=== PATIENT | female | born 1955 | race Two or more races ===

== ENCOUNTER 2021-06-06 20:49 | Inpatient (IN) | payer OTHER ==
[~2021-06-06] VITALS: Ht 165.1 cm; Wt 99.8 kg
[~2021-06-06 20:49] MED LIST: ETOMIDATE 2MG/ML 10ML VIAL IV ONE; SODIUM CHLORIDE 0.9% 10ML VIAL ONE; VECURONIUM BROMIDE 10 MG/VIAL IV ONE
[2021-06-06] MEDS ORDERED: PROPOFOL 10MG/ML 100ML 100 ML IV STA (20:57)
[2021-06-06] MEDS ORDERED: DEXAMETHASONE 10 MG/ML VIAL IV ONE (21:00)
[2021-06-06] MEDS ORDERED: AZITHROMYCIN 500 MG in DEXT 5% WATER 250 ML IV ONE (21:00)
[2021-06-06] MEDS ORDERED: CEFTRIAXONE 1 G PREMIX 50 ML IV ONE (21:00)
[2021-06-06] MEDS ORDERED: DILTIAZEM HCL 5MG/ML 5ML VIAL IV ONE (21:30)
[2021-06-06 21:52] LABS: BG BASE EXCESS -4.7 mmol/L (-2.0-2.0); BG DEOXYHEMOGLOBIN 21.6 % (0.0-5.0); BG FRACTION INSPIRED OXYGEN 100; BG HCO3 ACT 21.3 mmol/L (22.0-26.0); BG METHEMOGLOBIN 0.4 % (0.0-1.5); BG OXYGEN SATURATION 78.1 % (92.0-98.5); BG PCO2 42.7 mmHg (35.0-45.0); BG PH 7.316 (7.350-7.450); BG PO2 48.2 mmHg (75.0-100.0); BG SAMPLE SITE RIGHT RADIAL; BG VENT MODE VENT - AC
[2021-06-06 22:09] LABS: BASOPHILS % 0.3 % (0.0-2.0); EOSINOPHILS % 0.1 % (0.0-5.0); HEMATOCRIT. 43.2 % (36.0-48.0); HEMOGLOBIN. 14.1 g/dL (12.0-16.0); LYMPHOCYTES % 12.5 % (20.0-50.0); MEAN CORPUSCULAR HEMOGLOBIN 29.8 pg (28.0-32.0); MEAN CORPUSCULAR VOLUME 91.4 fL (81.0-99.0); MONOCYTES % 12.6 % (2.0-8.0); NEUTROPHILS % 74.5 % (40.0-76.0); RED BLOOD CELL COUNT 4.72 mill/uL (4.2-5.4); RED CELL DISTRIBUTION WIDTH 14.6 % (11.6-14.6)
[2021-06-06 22:11] LABS: CHLORIDE 96 mEq/L (98-107)
[2021-06-06 22:13] LABS: INR 1.1; PROTHROMBIN TIME 11.9 sec (9.6-11.0)
[2021-06-06] MEDS ORDERED: MIDAZOLAM HCL 100 MG in DEXT 5% WATER 80 ML IV ONE (22:45)
[2021-06-06] MEDS ORDERED: PIPERACILLIN/TAZ 3.375G PREMIX 50 ML IV ONE (23:00)
[2021-06-06] MEDS ORDERED: PHENYLEPHRINE 50 MG in DEXT 5% WATER 245 ML IV STA (23:03)
[2021-06-06] MEDS ORDERED: PHENYLEPHRINE 50 MG in DEXT 5% WATER 245 ML IV PRN (23:15)
[2021-06-06] MEDS ORDERED: MIDAZOLAM HCL 100 MG in DEXT 5% WATER 80 ML IV PRN (23:15)
[2021-06-07] VITALS (89 sets, daily range): BP systolic 59–161; BP diastolic 45–108
[2021-06-07] MEDS: DEXT 5%/0.45% NACL 1000ML 1,000 ML IV SCH ×2 (02:30→18:56)
[2021-06-07 03:31] LABS: BASOPHILS % 0.7 % (0.0-2.0); EOSINOPHILS % 0.1 % (0.0-5.0); HEMATOCRIT. 42.2 % (36.0-48.0); LYMPHOCYTES % 16.4 % (20.0-50.0); MEAN CORPUSCULAR HEMOGLOBIN 30.5 pg (28.0-32.0); MEAN CORPUSCULAR VOLUME 92.1 fL (81.0-99.0); NEUTROPHILS % 76.8 % (40.0-76.0); RED BLOOD CELL COUNT 4.58 mill/uL (4.2-5.4); RED CELL DISTRIBUTION WIDTH 14.5 % (11.6-14.6)
[2021-06-07 03:41] LABS: CHLORIDE 95 mEq/L (98-107)
[2021-06-07] MEDS: PHENYLEPHRINE 100 MG in DEXT 5% WATER 240 ML IV PRN ×4 (03:42→19:42)
[2021-06-07] MEDS ORDERED: CEFTRIAXONE 1 G PREMIX 50 ML IV SCH (04:15)
[2021-06-07] MEDS ORDERED: ACETAMINOPHEN 650MG SUPP PR PRN (04:15)
[2021-06-07] MEDS ORDERED: ONDANSETRON HCL 4MG/2ML INJ IV PRN (04:15)
[2021-06-07] MEDS ORDERED: DEXT 5%/0.45% NACL 1000ML 1,000 ML IV SCH (04:15)
[2021-06-07] MEDS ORDERED: DEXAMETHASONE 10 MG/ML VIAL IV SCH (09:00)
[2021-06-07 09:48] LABS: BG BASE EXCESS -7.8 mmol/L (-2.0-2.0); BG CARBOXYHEMOGLOBIN 0.5 % (0.5-1.5); BG DEOXYHEMOGLOBIN 5.7 % (0.0-5.0); BG FRACTION INSPIRED OXYGEN 100; BG HCO3 ACT 17.6 mmol/L (22.0-26.0); BG METHEMOGLOBIN 0.3 % (0.0-1.5); BG OXYGEN SATURATION 94.3 % (92.0-98.5); BG OXYHEMOGLOBIN 93.5 % (94.0-97.0); BG PCO2 35.9 mmHg (35.0-45.0); BG PH 7.308 (7.350-7.450); BG SAMPLE SITE RIGHT RADIAL; BG TOTAL HEMOGLOBIN 14.3 g/dL (12.0-18.0); BG VENT MODE VENT - AC
[2021-06-07] MEDS: PANTOPRAZOLE SODIUM 40 MG/VIAL IV SCH (10:15)
[2021-06-07] MEDS: FENTANYL CITRATE/PF 2,500 MCG in SODIUM CHLORIDE 0.9% 200 ML IV PRN (10:49)
[2021-06-07] MEDS ORDERED: DILTIAZEM HCL 5MG/ML 5ML VIAL IV PRN (11:00)
[2021-06-07] MEDS ORDERED: IPRATROPIUM/ALBUTEROL 0.5-3(2.5)MG/3ML NEB HHN PRN (11:45)
[2021-06-07] MEDS: ENOXAPARIN 100MG/ML SYR SUBCUT SCH (12:55)
[2021-06-07] MEDS: ZINC SULFATE 220 MG ( 50 ) CAPSULE PO SCH (12:55)
[2021-06-07] MEDS: IPRATROPIUM/ALBUTEROL 0.5-3(2.5)MG/3ML NEB HHN SCH ×2 (15:00→21:18)
[2021-06-07 16:18] LABS: BG BASE EXCESS -7.3 mmol/L (-2.0-2.0); BG CARBOXYHEMOGLOBIN 0.3 % (0.5-1.5); BG DEOXYHEMOGLOBIN 1.2 % (0.0-5.0); BG FRACTION INSPIRED OXYGEN 100; BG HCO3 ACT 17.4 mmol/L (22.0-26.0); BG METHEMOGLOBIN 0.3 % (0.0-1.5); BG OXYGEN SATURATION 98.8 % (92.0-98.5); BG OXYHEMOGLOBIN 98.2 % (94.0-97.0); BG PCO2 33.2 mmHg (35.0-45.0); BG PH 7.337 (7.350-7.450); BG SAMPLE SITE LEFT BRACHIAL; BG TOTAL HEMOGLOBIN 15.3 g/dL (12.0-18.0); BG VENT MODE PRVC
[2021-06-07] MEDS: ERGOCALCIFEROL 50000UNITS CAPSULE PO SCH (17:46)
[2021-06-07] MEDS: MIDAZOLAM HCL 100 MG in SODIUM CHLORIDE 0.9% 80 ML IV PRN ×2 (19:37→19:43)
[2021-06-07] MEDS: CEFTRIAXONE 1,000 MG in DEXTROSE 5% WATER 50 ML IV SCH ×2 (19:39→19:42)
[2021-06-07] MEDS: AZITHROMYCIN 500 MG in DEXT 5% WATER 250 ML IV SCH (20:10)
[2021-06-08] VITALS (93 sets, daily range): BP systolic 90–136; BP diastolic 56–93
[2021-06-08] MEDS: IPRATROPIUM/ALBUTEROL 0.5-3(2.5)MG/3ML NEB HHN SCH ×4 (00:26→21:15)
[2021-06-08] MEDS: DEXT 5%/0.45% NACL 1000ML 1,000 ML IV SCH (05:40)
[2021-06-08 06:14] LABS: CHLORIDE 95 mEq/L (98-107)
[2021-06-08 06:16] LABS: BASOPHILS % 0.3 % (0.0-2.0); EOSINOPHILS % 0.1 % (0.0-5.0); HEMATOCRIT. 42.3 % (36.0-48.0); HEMOGLOBIN. 14.2 g/dL (12.0-16.0); LYMPHOCYTES % 9.7 % (20.0-50.0); MEAN CORPUSCULAR HEMOGLOBIN 30.3 pg (28.0-32.0); MEAN CORPUSCULAR VOLUME 90.2 fL (81.0-99.0); MONOCYTES % 7.2 % (2.0-8.0); NEUTROPHILS % 82.7 % (40.0-76.0); RED BLOOD CELL COUNT 4.69 mill/uL (4.2-5.4); RED CELL DISTRIBUTION WIDTH 14.5 % (11.6-14.6)
[2021-06-08 06:53] LABS: HEPATITIS B SURFACE ANTIGEN NEGATIVE
[2021-06-08 07:48] LABS: BG BASE EXCESS -4.3 mmol/L (-2.0-2.0); BG CARBOXYHEMOGLOBIN 0.3 % (0.5-1.5); BG DEOXYHEMOGLOBIN 1.2 % (0.0-5.0); BG HCO3 ACT 20.3 mmol/L (22.0-26.0); BG METHEMOGLOBIN 0.1 % (0.0-1.5); BG OXYGEN SATURATION 98.8 % (92.0-98.5); BG OXYHEMOGLOBIN 98.4 % (94.0-97.0); BG PCO2 36.4 mmHg (35.0-45.0); BG PH 7.365 (7.350-7.450); BG PO2 148.6 mmHg (75.0-100.0); BG SAMPLE SITE RIGHT RADIAL; BG TOTAL HEMOGLOBIN 14.8 g/dL (12.0-18.0); BG VENT MODE VENT- PRVC
[2021-06-08] MEDS: DEXAMETHASONE 10 MG/ML VIAL IV SCH (10:31)
[2021-06-08] MEDS: ZINC SULFATE 220 MG ( 50 ) CAPSULE PO SCH (10:31)
[2021-06-08] MEDS: PANTOPRAZOLE SODIUM 40 MG/VIAL IV SCH (10:31)
[2021-06-08] MEDS: ENOXAPARIN 100MG/ML SYR SUBCUT SCH (12:00)
[2021-06-08] MEDS: MIDAZOLAM HCL 100 MG in SODIUM CHLORIDE 0.9% 80 ML IV PRN (14:07)
[2021-06-08] MEDS: DEXT 5%/0.9% NACL 1,000 ML IV SCH (16:56)
[2021-06-08] MEDS ORDERED: METOCLOPRAMIDE HCL 10MG/2ML VIAL IV SCH (18:00)
[2021-06-08] MEDS: CEFTRIAXONE 1,000 MG in DEXTROSE 5% WATER 50 ML IV SCH (19:29)
[2021-06-08] MEDS: AZITHROMYCIN 500 MG in DEXT 5% WATER 250 ML IV SCH (20:16)
[2021-06-08] MEDS: METOCLOPRAMIDE HCL 10MG/2ML VIAL IV SCH (23:03)
[2021-06-09] VITALS (95 sets, daily range): BP systolic 81–134; BP diastolic 50–79
[2021-06-09] MEDS: IPRATROPIUM/ALBUTEROL 0.5-3(2.5)MG/3ML NEB HHN SCH ×4 (01:10→20:59)
[2021-06-09] MEDS: DEXT 5%/0.9% NACL 1,000 ML IV SCH (02:33)
[2021-06-09] MEDS: PHENYLEPHRINE 100 MG in DEXT 5% WATER 240 ML IV PRN (02:33)
[2021-06-09] MEDS: METOCLOPRAMIDE HCL 10MG/2ML VIAL IV SCH ×4 (04:58→23:34)
[2021-06-09] MEDS: FENTANYL CITRATE/PF 2,500 MCG in SODIUM CHLORIDE 0.9% 200 ML IV PRN (06:53)
[2021-06-09] MEDS: DEXAMETHASONE 10 MG/ML VIAL IV SCH (08:26)
[2021-06-09] MEDS: PANTOPRAZOLE SODIUM 40 MG/VIAL IV SCH (08:26)
[2021-06-09] MEDS: ZINC SULFATE 220 MG ( 50 ) CAPSULE PO SCH (08:26)
[2021-06-09] MEDS: MIDAZOLAM HCL 100 MG in SODIUM CHLORIDE 0.9% 80 ML IV PRN (08:39)
[2021-06-09 08:55] LABS: BASOPHILS % 0.3 % (0.0-2.0); HEMATOCRIT. 39.2 % (36.0-48.0); HEMOGLOBIN. 12.7 g/dL (12.0-16.0); LYMPHOCYTES % 10.3 % (20.0-50.0); MEAN CORPUSCULAR VOLUME 92.3 fL (81.0-99.0); MONOCYTES % 8.6 % (2.0-8.0); NEUTROPHILS % 80.8 % (40.0-76.0); RED BLOOD CELL COUNT 4.25 mill/uL (4.2-5.4); RED CELL DISTRIBUTION WIDTH 14.5 % (11.6-14.6)
[2021-06-09] MEDS ORDERED: INSULIN REGULAR (HUMULIN R) 300UNITS/3ML VIAL IV NR (11:00)
[2021-06-09] MEDS: ENOXAPARIN 100MG/ML SYR SUBCUT SCH (12:00)
[2021-06-09] MEDS: INSULIN LISPRO 100 UNITS/ML SUBCUT SCH ×4 (12:00→23:35)
[2021-06-09] MEDS: BLOOD SUGAR DIAGNOSTIC STRIP TEST SCH ×4 (12:01→23:35)
[2021-06-09] MEDS: SODIUM CHLORIDE 0.9% 1,000 ML IV SCH ×2 (12:34→23:34)
[2021-06-09] MEDS: INSULIN GLARGINE UD 100 UNITS/ML SYR SUBCUT SCH (14:12)
[2021-06-09] MEDS ORDERED: OMEP20TA2 MT (16:59)
[2021-06-09] MEDS ORDERED: AMLO5TAB88 MT (16:59)
[2021-06-09] MEDS: CEFTRIAXONE 1,000 MG in DEXTROSE 5% WATER 50 ML IV SCH (19:59)
[2021-06-09] MEDS: AZITHROMYCIN 500 MG in DEXT 5% WATER 250 ML IV SCH (20:44)
[2021-06-10] VITALS (94 sets, daily range): BP systolic 102–145; BP diastolic 57–85
[2021-06-10] MEDS: MIDAZOLAM HCL 100 MG in SODIUM CHLORIDE 0.9% 80 ML IV PRN (01:48)
[2021-06-10] MEDS: IPRATROPIUM/ALBUTEROL 0.5-3(2.5)MG/3ML NEB HHN SCH ×4 (02:18→20:58)
[2021-06-10] MEDS: BLOOD SUGAR DIAGNOSTIC STRIP TEST SCH ×5 (04:18→20:02)
[2021-06-10] MEDS: METOCLOPRAMIDE HCL 10MG/2ML VIAL IV SCH ×3 (05:06→17:51)
[2021-06-10] MEDS: INSULIN LISPRO 100 UNITS/ML SUBCUT SCH ×5 (05:07→20:09)
[2021-06-10] MEDS: SODIUM CHLORIDE 0.9% 1,000 ML IV SCH ×2 (07:48→17:51)
[2021-06-10] MEDS: DEXAMETHASONE 10 MG/ML VIAL IV SCH (08:01)
[2021-06-10] MEDS: ZINC SULFATE 220 MG ( 50 ) CAPSULE PO SCH (08:01)
[2021-06-10] MEDS: PANTOPRAZOLE SODIUM 40 MG/VIAL IV SCH (08:01)
[2021-06-10 09:38] LABS: BG BASE EXCESS -4.2 mmol/L (-2.0-2.0); BG CARBOXYHEMOGLOBIN 0.1 % (0.5-1.5); BG DEOXYHEMOGLOBIN 3.6 % (0.0-5.0); BG FRACTION INSPIRED OXYGEN 85; BG HCO3 ACT 21.3 mmol/L (22.0-26.0); BG METHEMOGLOBIN 0.3 % (0.0-1.5); BG OXYGEN SATURATION 96.4 % (92.0-98.5); BG PCO2 40.5 mmHg (35.0-45.0); BG PH 7.338 (7.350-7.450); BG PO2 89.5 mmHg (75.0-100.0); BG SAMPLE SITE RIGHT RADIAL; BG TOTAL HEMOGLOBIN 12.7 g/dL (12.0-18.0); BG VENT MODE VENT - PRVC
[2021-06-10] MEDS: INSULIN GLARGINE UD 100 UNITS/ML SYR SUBCUT SCH (10:20)
[2021-06-10] MEDS: ENOXAPARIN 100MG/ML SYR SUBCUT SCH (11:41)
[2021-06-10 12:41] LABS: HEMATOCRIT. 34.8 % (36.0-48.0); HEMOGLOBIN. 11.3 g/dL (12.0-16.0); MEAN CORPUSCULAR HEMOGLOBIN 30.3 pg (28.0-32.0); MEAN CORPUSCULAR VOLUME 92.7 fL (81.0-99.0); RED BLOOD CELL COUNT 3.75 mill/uL (4.2-5.4); RED CELL DISTRIBUTION WIDTH 14.8 % (11.6-14.6)
[2021-06-10 12:56] LABS: BG BASE EXCESS -3.2 mmol/L (-2.0-2.0); BG CARBOXYHEMOGLOBIN 0.1 % (0.5-1.5); BG DEOXYHEMOGLOBIN 3.3 % (0.0-5.0); BG FRACTION INSPIRED OXYGEN 75; BG HCO3 ACT 22.7 mmol/L (22.0-26.0); BG METHEMOGLOBIN 0.3 % (0.0-1.5); BG OXYGEN SATURATION 96.7 % (92.0-98.5); BG OXYHEMOGLOBIN 96.3 % (94.0-97.0); BG PH 7.331 (7.350-7.450); BG PO2 94.1 mmHg (75.0-100.0); BG SAMPLE SITE RIGHT RADIAL; BG TOTAL HEMOGLOBIN 15.1 g/dL (12.0-18.0); BG VENT MODE PRVC
[2021-06-10 14:00] LABS: NUCLEATED RED BLOOD CELLS 1 /100 WBC
[2021-06-10] MEDS: CEFTRIAXONE 1,000 MG in DEXTROSE 5% WATER 50 ML IV SCH (19:55)
[2021-06-10] MEDS: AZITHROMYCIN 500 MG in DEXT 5% WATER 250 ML IV SCH (21:40)
[2021-06-11] VITALS (88 sets, daily range): BP systolic 119–166; BP diastolic 48–93
[2021-06-11] MEDS: BLOOD SUGAR DIAGNOSTIC STRIP TEST SCH ×6 (00:11→20:50)
[2021-06-11] MEDS: INSULIN LISPRO 100 UNITS/ML SUBCUT SCH ×6 (00:15→20:55)
[2021-06-11] MEDS: METOCLOPRAMIDE HCL 10MG/2ML VIAL IV SCH ×4 (00:15→18:09)
[2021-06-11] MEDS: MIDAZOLAM HCL 100 MG in SODIUM CHLORIDE 0.9% 80 ML IV PRN ×2 (00:19→18:11)
[2021-06-11] MEDS: IPRATROPIUM/ALBUTEROL 0.5-3(2.5)MG/3ML NEB HHN SCH ×6 (00:58→20:14)
[2021-06-11] MEDS: SODIUM CHLORIDE 0.9% 1,000 ML IV SCH ×2 (03:30→15:14)
[2021-06-11 05:40] LABS: HEMATOCRIT. 35.8 % (36.0-48.0); HEMOGLOBIN. 11.7 g/dL (12.0-16.0); MEAN CORPUSCULAR HEMOGLOBIN 30.2 pg (28.0-32.0); MEAN CORPUSCULAR VOLUME 92.6 fL (81.0-99.0); RED BLOOD CELL COUNT 3.87 mill/uL (4.2-5.4); RED CELL DISTRIBUTION WIDTH 14.8 % (11.6-14.6)
[2021-06-11] MEDS: DEXAMETHASONE 10 MG/ML VIAL IV SCH (09:07)
[2021-06-11] MEDS: PANTOPRAZOLE SODIUM 40 MG/VIAL IV SCH (09:07)
[2021-06-11] MEDS: ZINC SULFATE 220 MG ( 50 ) CAPSULE PO SCH (09:07)
[2021-06-11] MEDS: INSULIN GLARGINE UD 100 UNITS/ML SYR SUBCUT SCH (11:13)
[2021-06-11] MEDS: ENOXAPARIN 100MG/ML SYR SUBCUT SCH (12:00)
[2021-06-11] MEDS: FENTANYL CITRATE/PF 2,500 MCG in SODIUM CHLORIDE 0.9% 200 ML IV PRN (18:12)
[2021-06-11] MEDS: CEFTRIAXONE 1,000 MG in DEXTROSE 5% WATER 50 ML IV SCH (20:33)
[2021-06-12] VITALS (98 sets, daily range): BP systolic 81–166; BP diastolic 54–94
[2021-06-12] MEDS: IPRATROPIUM/ALBUTEROL 0.5-3(2.5)MG/3ML NEB HHN SCH ×6 (00:09→21:51)
[2021-06-12] MEDS: BLOOD SUGAR DIAGNOSTIC STRIP TEST SCH ×7 (00:18→23:28)
[2021-06-12] MEDS: SODIUM CHLORIDE 0.9% 1,000 ML IV SCH ×3 (00:20→21:33)
[2021-06-12] MEDS: METOCLOPRAMIDE HCL 10MG/2ML VIAL IV SCH ×5 (00:20→23:28)
[2021-06-12] MEDS: INSULIN LISPRO 100 UNITS/ML SUBCUT SCH ×6 (00:21→20:28)
[2021-06-12] MEDS: MIDAZOLAM HCL 100 MG in SODIUM CHLORIDE 0.9% 80 ML IV PRN ×2 (04:54→20:27)
[2021-06-12 05:38] LABS: HEMATOCRIT. 35.6 % (36.0-48.0); HEMOGLOBIN. 11.5 g/dL (12.0-16.0); MEAN CORPUSCULAR HEMOGLOBIN 30.1 pg (28.0-32.0); RED BLOOD CELL COUNT 3.83 mill/uL (4.2-5.4); RED CELL DISTRIBUTION WIDTH 15.5 % (11.6-14.6)
[2021-06-12] MEDS: ZINC SULFATE 220 MG ( 50 ) CAPSULE PO SCH (08:43)
[2021-06-12] MEDS: DEXAMETHASONE 10 MG/ML VIAL IV SCH (08:43)
[2021-06-12] MEDS: PANTOPRAZOLE SODIUM 40 MG/VIAL IV SCH (08:43)
[2021-06-12 09:42] LABS: BG BASE EXCESS -3.5 mmol/L (-2.0-2.0); BG CARBOXYHEMOGLOBIN 0.3 % (0.5-1.5); BG DEOXYHEMOGLOBIN 2.5 % (0.0-5.0); BG FRACTION INSPIRED OXYGEN 75; BG HCO3 ACT 22.1 mmol/L (22.0-26.0); BG METHEMOGLOBIN 0.3 % (0.0-1.5); BG OXYGEN SATURATION 97.5 % (92.0-98.5); BG OXYHEMOGLOBIN 96.9 % (94.0-97.0); BG PCO2 41.8 mmHg (35.0-45.0); BG PH 7.341 (7.350-7.450); BG PO2 107.7 mmHg (75.0-100.0); BG SAMPLE SITE RIGHT RADIAL; BG TOTAL HEMOGLOBIN 11.7 g/dL (12.0-18.0); BG VENT MODE VENT - PRVC
[2021-06-12] MEDS: INSULIN GLARGINE UD 100 UNITS/ML SYR SUBCUT SCH (10:20)
[2021-06-12 10:52] LABS: NUCLEATED RED BLOOD CELLS 1 /100 WBC
[2021-06-12] MEDS: ENOXAPARIN 100MG/ML SYR SUBCUT SCH (12:49)
[2021-06-12] MEDS: FENTANYL CITRATE/PF 2,500 MCG in SODIUM CHLORIDE 0.9% 200 ML IV PRN (20:31)
[2021-06-13] VITALS (94 sets, daily range): BP systolic 98–166; BP diastolic 57–96
[2021-06-13] MEDS: IPRATROPIUM/ALBUTEROL 0.5-3(2.5)MG/3ML NEB HHN SCH ×6 (01:07→20:48)
[2021-06-13] MEDS: BLOOD SUGAR DIAGNOSTIC STRIP TEST SCH ×5 (04:00→20:59)
[2021-06-13] MEDS: INSULIN LISPRO 100 UNITS/ML SUBCUT SCH ×6 (04:00→20:59)
[2021-06-13 05:51] LABS: HEMATOCRIT. 34.5 % (36.0-48.0); HEMOGLOBIN. 11.2 g/dL (12.0-16.0); MEAN CORPUSCULAR HEMOGLOBIN 30.4 pg (28.0-32.0); MEAN CORPUSCULAR VOLUME 93.3 fL (81.0-99.0); MEAN PLATELET VOLUME 10.6 fl (7.4-10.4); PLATELET 52 x1000/uL (130-400)
[2021-06-13] MEDS: METOCLOPRAMIDE HCL 10MG/2ML VIAL IV SCH ×3 (06:06→17:44)
[2021-06-13] MEDS: SODIUM CHLORIDE 0.9% 1,000 ML IV SCH (06:06)
[2021-06-13 09:44] LABS: BG BASE EXCESS -0.3 mmol/L (-2.0-2.0); BG CARBOXYHEMOGLOBIN 0.6 % (0.5-1.5); BG DEOXYHEMOGLOBIN 5.8 % (0.0-5.0); BG FRACTION INSPIRED OXYGEN 80; BG METHEMOGLOBIN 0.1 % (0.0-1.5); BG OXYGEN SATURATION 94.2 % (92.0-98.5); BG OXYHEMOGLOBIN 93.5 % (94.0-97.0); BG PCO2 43.3 mmHg (35.0-45.0); BG PH 7.379 (7.350-7.450); BG PO2 75.6 mmHg (75.0-100.0); BG SAMPLE SITE LEFT RADIAL; BG TOTAL HEMOGLOBIN 11.3 g/dL (12.0-18.0); BG VENT MODE VENT - PRVC
[2021-06-13] MEDS: PANTOPRAZOLE SODIUM 40 MG/VIAL IV SCH (10:27)
[2021-06-13] MEDS: DEXAMETHASONE 10 MG/ML VIAL IV SCH (10:27)
[2021-06-13] MEDS: ZINC SULFATE 220 MG ( 50 ) CAPSULE PO SCH (10:27)
[2021-06-13] MEDS: INSULIN GLARGINE UD 100 UNITS/ML SYR SUBCUT SCH (10:28)
[2021-06-13] MEDS: SODIUM CHLORIDE 0.45% 1,000 ML IV SCH ×2 (10:30→21:38)
[2021-06-13 10:37] LABS: INR 1.1; PROTHROMBIN TIME 11.8 sec (9.6-11.0)
[2021-06-13] MEDS: ACETAMINOPHEN 650MG SUPP PR PRN (11:08)
[2021-06-13] MEDS: MIDAZOLAM HCL 100 MG in SODIUM CHLORIDE 0.9% 80 ML IV PRN (12:54)
[2021-06-13] MEDS: FENTANYL CITRATE/PF 2,500 MCG in SODIUM CHLORIDE 0.9% 200 ML IV PRN (12:55)
[2021-06-13 13:47] LABS: PLATELET ESTIMATE DECREASED
[2021-06-14] VITALS (93 sets, daily range): BP systolic 95–155; BP diastolic 60–92
[2021-06-14] MEDS: METOCLOPRAMIDE HCL 10MG/2ML VIAL IV SCH ×4 (00:10→18:16)
[2021-06-14] MEDS: BLOOD SUGAR DIAGNOSTIC STRIP TEST SCH ×6 (00:10→20:43)
[2021-06-14] MEDS: INSULIN LISPRO 100 UNITS/ML SUBCUT SCH ×6 (00:11→20:43)
[2021-06-14] MEDS: IPRATROPIUM/ALBUTEROL 0.5-3(2.5)MG/3ML NEB HHN SCH ×6 (00:34→20:16)
[2021-06-14] MEDS: MIDAZOLAM HCL 100 MG in SODIUM CHLORIDE 0.9% 80 ML IV PRN ×3 (01:18→21:43)
[2021-06-14 05:16] LABS: HEMATOCRIT. 33.2 % (36.0-48.0); HEMOGLOBIN. 10.6 g/dL (12.0-16.0); MEAN CORPUSCULAR HEMOGLOBIN 29.8 pg (28.0-32.0); MEAN CORPUSCULAR VOLUME 93.4 fL (81.0-99.0); PLATELET 57 x1000/uL (130-400); RED BLOOD CELL COUNT 3.55 mill/uL (4.2-5.4); RED CELL DISTRIBUTION WIDTH 15.3 % (11.6-14.6)
[2021-06-14 08:07] LABS: BG BASE EXCESS -3.1 mmol/L (-2.0-2.0); BG CARBOXYHEMOGLOBIN 1.4 % (0.5-1.5); BG DEOXYHEMOGLOBIN 14.3 % (0.0-5.0); BG HCO3 ACT 23.3 mmol/L (22.0-26.0); BG METHEMOGLOBIN 0.3 % (0.0-1.5); BG OXYGEN SATURATION 85.5 % (92.0-98.5); BG PCO2 47.3 mmHg (35.0-45.0); BG PH 7.311 (7.350-7.450); BG PO2 52.7 mmHg (75.0-100.0); BG SAMPLE SITE RIGHT RADIAL; BG TOTAL HEMOGLOBIN 12.1 g/dL (12.0-18.0); BG VENT MODE VENT- PRVC
[2021-06-14] MEDS: ERGOCALCIFEROL 50000UNITS CAPSULE PO SCH (08:38)
[2021-06-14] MEDS: PANTOPRAZOLE SODIUM 40 MG/VIAL IV SCH (08:38)
[2021-06-14] MEDS: ZINC SULFATE 220 MG ( 50 ) CAPSULE PO SCH (08:38)
[2021-06-14] MEDS: DEXAMETHASONE 10 MG/ML VIAL IV SCH (08:38)
[2021-06-14 10:25] LABS: PLATELET ESTIMATE DECREASED
[2021-06-14] MEDS: INSULIN GLARGINE UD 100 UNITS/ML SYR SUBCUT SCH (10:38)
[2021-06-14] MEDS: FENTANYL CITRATE/PF 2,500 MCG in SODIUM CHLORIDE 0.9% 200 ML IV PRN ×2 (11:41→21:48)
[2021-06-14 14:40] LABS: CLARITY URINE CLOUDY (CLEAR); COLOR URINE YELLOW (YELLOW); KETONES URINE NEGATIVE (NEGATIVE); LEUKOCYTE ESTERASE URINE TRACE (NEGATIVE); NITRITE URINE NEGATIVE (NEGATIVE); OCCULT BLOOD URINE 3+ (NEGATIVE); PH URINE 5.5 (4.5-8.0); PROTEIN URINE 2+ (NEGATIVE); SPECIFIC GRAVITY URINE 1.022 (1.005-1.030); UROBILINOGEN URINE 0.2 E.U./dL (0.2-1.0)
[2021-06-14] MEDS: SODIUM CHLORIDE 0.45% 1,000 ML IV SCH (17:20)
[2021-06-14 21:28] LABS: BG BASE EXCESS -4.4 mmol/L (-2.0-2.0); BG CARBOXYHEMOGLOBIN 0.6 % (0.5-1.5); BG DEOXYHEMOGLOBIN 23.3 % (0.0-5.0); BG FRACTION INSPIRED OXYGEN 100; BG HCO3 ACT 23.8 mmol/L (22.0-26.0); BG METHEMOGLOBIN 0.7 % (0.0-1.5); BG OXYGEN SATURATION 76.4 % (92.0-98.5); BG OXYHEMOGLOBIN 75.4 % (94.0-97.0); BG PCO2 59.6 mmHg (35.0-45.0); BG PO2 48.1 mmHg (75.0-100.0); BG SAMPLE SITE LEFT RADIAL; BG TOTAL HEMOGLOBIN 11.3 g/dL (12.0-18.0); BG VENT MODE VENT - PRVC
[2021-06-15] VITALS (96 sets, daily range): BP systolic 125–156; BP diastolic 66–93
[2021-06-15] MEDS: METOCLOPRAMIDE HCL 10MG/2ML VIAL IV SCH ×4 (00:05→17:55)
[2021-06-15] MEDS: INSULIN LISPRO 100 UNITS/ML SUBCUT SCH ×4 (00:06→17:57)
[2021-06-15] MEDS: BLOOD SUGAR DIAGNOSTIC STRIP TEST SCH ×4 (00:06→17:07)
[2021-06-15] MEDS: IPRATROPIUM/ALBUTEROL 0.5-3(2.5)MG/3ML NEB HHN SCH ×6 (00:27→21:30)
[2021-06-15] MEDS: MIDAZOLAM HCL 100 MG in SODIUM CHLORIDE 0.9% 80 ML IV PRN ×3 (04:38→22:21)
[2021-06-15] MEDS: FENTANYL CITRATE/PF 2,500 MCG in SODIUM CHLORIDE 0.9% 200 ML IV PRN ×3 (04:39→22:00)
[2021-06-15] MEDS: PANTOPRAZOLE SODIUM 40 MG/VIAL IV SCH (09:01)
[2021-06-15] MEDS: DEXAMETHASONE 10 MG/ML VIAL IV SCH (09:01)
[2021-06-15] MEDS: ZINC SULFATE 220 MG ( 50 ) CAPSULE PO SCH (09:01)
[2021-06-15] MEDS: INSULIN GLARGINE UD 100 UNITS/ML SYR SUBCUT SCH (09:02)
[2021-06-15] MEDS: SODIUM CHLORIDE 0.45% 1,000 ML IV SCH (09:29)
[2021-06-15 11:04] LABS: BG BASE EXCESS -3.1 mmol/L (-2.0-2.0); BG CARBOXYHEMOGLOBIN 1.1 % (0.5-1.5); BG DEOXYHEMOGLOBIN 1.9 % (0.0-5.0); BG FRACTION INSPIRED OXYGEN 100; BG HCO3 ACT 22.2 mmol/L (22.0-26.0); BG METHEMOGLOBIN 0.4 % (0.0-1.5); BG OXYGEN SATURATION 98.1 % (92.0-98.5); BG OXYHEMOGLOBIN 96.6 % (94.0-97.0); BG PCO2 40.7 mmHg (35.0-45.0); BG PH 7.355 (7.350-7.450); BG PO2 114.9 mmHg (75.0-100.0); BG SAMPLE SITE RIGHT RADIAL; BG TOTAL HEMOGLOBIN 10.3 g/dL (12.0-18.0); BG TOTAL RESPIRATORY RATE 34 b/min; BG VENT MODE AC/PRVC
[2021-06-15 11:52] LABS: HEMATOCRIT. 32.2 % (36.0-48.0); HEMOGLOBIN. 10.2 g/dL (12.0-16.0); MEAN CORPUSCULAR HEMOGLOBIN 30.4 pg (28.0-32.0); MEAN PLATELET VOLUME 9.5 fl (7.4-10.4); PLATELET 61 x1000/uL (130-400); RED BLOOD CELL COUNT 3.35 mill/uL (4.2-5.4); RED CELL DISTRIBUTION WIDTH 15.9 % (11.6-14.6)
[2021-06-15 15:05] LABS: PLATELET ESTIMATE DECREASED
[2021-06-16] VITALS (95 sets, daily range): BP systolic 51–142; BP diastolic 27–91
[2021-06-16] MEDS: BLOOD SUGAR DIAGNOSTIC STRIP TEST SCH ×4 (00:05→17:27)
[2021-06-16] MEDS: METOCLOPRAMIDE HCL 10MG/2ML VIAL IV SCH ×4 (00:16→17:32)
[2021-06-16] MEDS: INSULIN LISPRO 100 UNITS/ML SUBCUT SCH ×4 (00:19→17:39)
[2021-06-16] MEDS: IPRATROPIUM/ALBUTEROL 0.5-3(2.5)MG/3ML NEB HHN SCH ×6 (00:49→20:42)
[2021-06-16] MEDS: SODIUM CHLORIDE 0.45% 1,000 ML IV SCH ×2 (03:41→21:01)
[2021-06-16] MEDS: FENTANYL CITRATE/PF 2,500 MCG in SODIUM CHLORIDE 0.9% 200 ML IV PRN ×2 (07:23→15:44)
[2021-06-16] MEDS: PANTOPRAZOLE SODIUM 40 MG/VIAL IV SCH (08:13)
[2021-06-16] MEDS: DEXAMETHASONE 10 MG/ML VIAL IV SCH (08:13)
[2021-06-16] MEDS: ZINC SULFATE 220 MG ( 50 ) CAPSULE PO SCH (08:13)
[2021-06-16 09:37] LABS: BG BASE EXCESS -0.7 mmol/L (-2.0-2.0); BG CARBOXYHEMOGLOBIN 0.9 % (0.5-1.5); BG DEOXYHEMOGLOBIN 7.4 % (0.0-5.0); BG FRACTION INSPIRED OXYGEN 90; BG METHEMOGLOBIN 0.4 % (0.0-1.5); BG OXYGEN SATURATION 92.5 % (92.0-98.5); BG OXYHEMOGLOBIN 91.3 % (94.0-97.0); BG PCO2 39.7 mmHg (35.0-45.0); BG PO2 72.7 mmHg (75.0-100.0); BG SAMPLE SITE RIGHT RADIAL; BG VENT MODE PRVC-AC
[2021-06-16] MEDS: INSULIN GLARGINE UD 100 UNITS/ML SYR SUBCUT SCH (10:34)
[2021-06-16] MEDS: MIDAZOLAM HCL 100 MG in SODIUM CHLORIDE 0.9% 80 ML IV PRN ×2 (12:47→20:59)
[2021-06-17] VITALS (96 sets, daily range): BP systolic 105–173; BP diastolic 57–91
[2021-06-17] MEDS: METOCLOPRAMIDE HCL 10MG/2ML VIAL IV SCH ×4 (00:23→17:37)
[2021-06-17] MEDS: BLOOD SUGAR DIAGNOSTIC STRIP TEST SCH ×4 (00:24→17:06)
[2021-06-17] MEDS: IPRATROPIUM/ALBUTEROL 0.5-3(2.5)MG/3ML NEB HHN SCH ×6 (00:49→20:48)
[2021-06-17] MEDS: FENTANYL CITRATE/PF 2,500 MCG in SODIUM CHLORIDE 0.9% 200 ML IV PRN ×3 (01:50→22:53)
[2021-06-17] MEDS: INSULIN LISPRO 100 UNITS/ML SUBCUT SCH ×4 (05:31→17:06)
[2021-06-17] MEDS: DEXTROSE 50% WATER 50ML SYRINGE IV PRN (05:31)
[2021-06-17] MEDS: MIDAZOLAM HCL 100 MG in SODIUM CHLORIDE 0.9% 80 ML IV PRN ×2 (07:48→18:52)
[2021-06-17] MEDS: PANTOPRAZOLE SODIUM 40 MG/VIAL IV SCH (08:20)
[2021-06-17] MEDS: DEXAMETHASONE 10 MG/ML VIAL IV SCH (08:21)
[2021-06-17] MEDS: ZINC SULFATE 220 MG ( 50 ) CAPSULE PO SCH (08:21)
[2021-06-17 08:56] LABS: HEMATOCRIT 30.3 % (36.0-48.0); HEMOGLOBIN 9.9 g/dL (12.0-16.0); MEAN CORPUSCULAR HEMOGLOBIN 30.7 pg (28.0-32.0); MEAN CORPUSCULAR VOLUME 93.8 fL (81.0-99.0); RED BLOOD CELL COUNT 3.23 mill/uL (4.2-5.4); RED CELL DISTRIBUTION WIDTH 15.1 % (11.6-14.6)
[2021-06-17] MEDS: INSULIN GLARGINE UD 100 UNITS/ML SYR SUBCUT SCH (10:00)
[2021-06-17 10:15] LABS: BG BASE EXCESS -1.9 mmol/L (-2.0-2.0); BG CARBOXYHEMOGLOBIN 1.1 % (0.5-1.5); BG DEOXYHEMOGLOBIN 11.8 % (0.0-5.0); BG FRACTION INSPIRED OXYGEN 90; BG HCO3 ACT 23.9 mmol/L (22.0-26.0); BG METHEMOGLOBIN 0.3 % (0.0-1.5); BG OXYHEMOGLOBIN 86.8 % (94.0-97.0); BG PCO2 45.2 mmHg (35.0-45.0); BG PH 7.341 (7.350-7.450); BG SAMPLE SITE RIGHT RADIAL; BG TOTAL HEMOGLOBIN 11.1 g/dL (12.0-18.0); BG VENT MODE VENT - AC/PRVC
[2021-06-17] MEDS ORDERED: LACTULOSE 20G/30ML UDC PO SCH (10:15)
[2021-06-17] MEDS ORDERED: BISACODYL 10MG SUPP PR SCH (10:15)
[2021-06-17] MEDS: SODIUM CHLORIDE 0.45% 1,000 ML IV SCH (14:55)
[2021-06-17] MEDS: LACTULOSE 20G/30ML UDC PO SCH (20:38)
[2021-06-18] VITALS (95 sets, daily range): BP systolic 96–190; BP diastolic 36–131
[2021-06-18] MEDS: IPRATROPIUM/ALBUTEROL 0.5-3(2.5)MG/3ML NEB HHN SCH ×6 (01:08→20:16)
[2021-06-18] MEDS: METOCLOPRAMIDE HCL 10MG/2ML VIAL IV SCH ×5 (01:51→23:06)
[2021-06-18] MEDS: MIDAZOLAM HCL 100 MG in SODIUM CHLORIDE 0.9% 80 ML IV PRN ×2 (04:13→15:21)
[2021-06-18] MEDS: BLOOD SUGAR DIAGNOSTIC STRIP TEST SCH ×5 (05:50→23:04)
[2021-06-18] MEDS: SODIUM CHLORIDE 0.45% 1,000 ML IV SCH ×2 (05:54→22:20)
[2021-06-18 06:03] LABS: HEMOGLOBIN. 9.7 g/dL (12.0-16.0); MEAN CORPUSCULAR HEMOGLOBIN 30.3 pg (28.0-32.0); MEAN CORPUSCULAR VOLUME 93.7 fL (81.0-99.0); RED CELL DISTRIBUTION WIDTH 15.2 % (11.6-14.6)
[2021-06-18 08:15] LABS: BG BASE EXCESS -1.3 mmol/L (-2.0-2.0); BG CARBOXYHEMOGLOBIN 1.5 % (0.5-1.5); BG DEOXYHEMOGLOBIN 22.1 % (0.0-5.0); BG HCO3 ACT 25.5 mmol/L (22.0-26.0); BG METHEMOGLOBIN 0.3 % (0.0-1.5); BG OXYGEN SATURATION 77.5 % (92.0-98.5); BG OXYHEMOGLOBIN 76.1 % (94.0-97.0); BG PCO2 52.3 mmHg (35.0-45.0); BG PH 7.306 (7.350-7.450); BG PO2 48.1 mmHg (75.0-100.0); BG SAMPLE SITE RIGHT RADIAL; BG VENT MODE VENT- PRVC
[2021-06-18] MEDS: FENTANYL CITRATE/PF 2,500 MCG in SODIUM CHLORIDE 0.9% 200 ML IV PRN ×2 (08:19→16:07)
[2021-06-18] MEDS: PANTOPRAZOLE SODIUM 40 MG/VIAL IV SCH (09:02)
[2021-06-18] MEDS: DEXAMETHASONE 10 MG/ML VIAL IV SCH (09:02)
[2021-06-18] MEDS: ZINC SULFATE 220 MG ( 50 ) CAPSULE PO SCH (09:02)
[2021-06-18] MEDS: INSULIN GLARGINE UD 100 UNITS/ML SYR SUBCUT SCH (10:00)
[2021-06-18] MEDS: DEXTROSE 50% WATER 50ML SYRINGE IV PRN (10:11)
[2021-06-18] MEDS: INSULIN LISPRO 100 UNITS/ML SUBCUT SCH ×4 (11:56→23:04)
[2021-06-18 12:53] LABS: PLATELET ESTIMATE DECREASED
[2021-06-18] MEDS: LACTULOSE 20G/30ML UDC PO SCH (20:47)
[2021-06-19] VITALS (96 sets, daily range): BP systolic 90–169; BP diastolic 49–107
[2021-06-19] MEDS: FENTANYL CITRATE/PF 2,500 MCG in SODIUM CHLORIDE 0.9% 200 ML IV PRN ×3 (00:01→19:34)
[2021-06-19] MEDS: IPRATROPIUM/ALBUTEROL 0.5-3(2.5)MG/3ML NEB HHN SCH ×6 (00:28→21:30)
[2021-06-19] MEDS: MIDAZOLAM HCL 100 MG in SODIUM CHLORIDE 0.9% 80 ML IV PRN ×2 (05:35→19:34)
[2021-06-19] MEDS: INSULIN LISPRO 100 UNITS/ML SUBCUT SCH ×4 (05:47→23:13)
[2021-06-19] MEDS: METOCLOPRAMIDE HCL 10MG/2ML VIAL IV SCH ×4 (05:47→23:14)
[2021-06-19] MEDS: BLOOD SUGAR DIAGNOSTIC STRIP TEST SCH ×4 (05:47→23:13)
[2021-06-19 05:52] LABS: HEMATOCRIT. 28.9 % (36.0-48.0); HEMOGLOBIN. 9.5 g/dL (12.0-16.0); MEAN CORPUSCULAR HEMOGLOBIN 30.8 pg (28.0-32.0); MEAN CORPUSCULAR VOLUME 93.4 fL (81.0-99.0); MEAN PLATELET VOLUME 10.3 fl (7.4-10.4); RED BLOOD CELL COUNT 3.09 mill/uL (4.2-5.4); RED CELL DISTRIBUTION WIDTH 14.5 % (11.6-14.6)
[2021-06-19] MEDS: ZINC SULFATE 220 MG ( 50 ) CAPSULE PO SCH (08:38)
[2021-06-19] MEDS: PANTOPRAZOLE SODIUM 40 MG/VIAL IV SCH (08:38)
[2021-06-19] MEDS: DEXAMETHASONE 10 MG/ML VIAL IV SCH (08:38)
[2021-06-19 09:20] LABS: BG BASE EXCESS -1.8 mmol/L (-2.0-2.0); BG CARBOXYHEMOGLOBIN 0.9 % (0.5-1.5); BG DEOXYHEMOGLOBIN 7.5 % (0.0-5.0); BG FRACTION INSPIRED OXYGEN 100; BG HCO3 ACT 25.1 mmol/L (22.0-26.0); BG METHEMOGLOBIN 0.3 % (0.0-1.5); BG OXYGEN SATURATION 92.4 % (92.0-98.5); BG OXYHEMOGLOBIN 91.3 % (94.0-97.0); BG PCO2 52.6 mmHg (35.0-45.0); BG PH 7.296 (7.350-7.450); BG SAMPLE SITE RIGHT RADIAL; BG TOTAL HEMOGLOBIN 10.9 g/dL (12.0-18.0); BG TOTAL RESPIRATORY RATE 39 b/min; BG VENT MODE VENT- PRVC
[2021-06-19] MEDS: INSULIN GLARGINE UD 100 UNITS/ML SYR SUBCUT SCH (10:07)
[2021-06-19 11:47] LABS: PLATELET ESTIMATE NORMAL
[2021-06-20] VITALS (96 sets, daily range): BP systolic 102–170; BP diastolic 39–126
[2021-06-20] MEDS: IPRATROPIUM/ALBUTEROL 0.5-3(2.5)MG/3ML NEB HHN SCH ×7 (01:36→21:27)
[2021-06-20] MEDS: FENTANYL CITRATE/PF 2,500 MCG in SODIUM CHLORIDE 0.9% 200 ML IV PRN ×3 (04:01→22:05)
[2021-06-20 05:25] LABS: HEMATOCRIT. 26.5 % (36.0-48.0); HEMOGLOBIN. 8.9 g/dL (12.0-16.0); MEAN CORPUSCULAR HEMOGLOBIN 30.9 pg (28.0-32.0); MEAN CORPUSCULAR VOLUME 92.2 fL (81.0-99.0); MEAN PLATELET VOLUME 10.6 fl (7.4-10.4); RED BLOOD CELL COUNT 2.88 mill/uL (4.2-5.4); RED CELL DISTRIBUTION WIDTH 14.2 % (11.6-14.6)
[2021-06-20 05:29] LABS: CHLORIDE 114 mEq/L (98-107)
[2021-06-20] MEDS: INSULIN LISPRO 100 UNITS/ML SUBCUT SCH ×3 (06:00→18:54)
[2021-06-20] MEDS: BLOOD SUGAR DIAGNOSTIC STRIP TEST SCH ×3 (06:20→18:41)
[2021-06-20] MEDS: METOCLOPRAMIDE HCL 10MG/2ML VIAL IV SCH ×3 (06:20→18:49)
[2021-06-20 07:34] LABS: PLATELET ESTIMATE DECREAS
[2021-06-20 10:26] LABS: BG SAMPLE SITE RIGHT RADIAL; BG TIDAL VOLUME(mL) 450 mL; BG VENT MODE VENT - PRVC; BG VENT RATE 40 set
[2021-06-20 10:28] LABS: BG HCO3 ACT 25.6 mmol/L (22.0-26.0); BG PCO2 43.3 mmHg (35.0-45.0); BG PH 7.389 (7.350-7.450); BG PO2 70.5 mmHg (75.0-100.0)
[2021-06-20 10:30] LABS: BG BASE EXCESS 0.5 mmol/L (-2.0-2.0); BG OXYGEN SATURATION 93.1 % (92.0-98.5); BG TOTAL HEMOGLOBIN 9.7 g/dL (12.0-18.0)
[2021-06-20 10:31] LABS: BG CARBOXYHEMOGLOBIN 1.1 % (0.5-1.5); BG DEOXYHEMOGLOBIN 6.8 % (0.0-5.0); BG METHEMOGLOBIN 0.4 % (0.0-1.5); BG OXYHEMOGLOBIN 91.7 % (94.0-97.0)
[2021-06-20] MEDS: PANTOPRAZOLE SODIUM 40 MG/VIAL IV SCH (11:13)
[2021-06-20] MEDS: DEXAMETHASONE 10 MG/ML VIAL IV SCH (11:13)
[2021-06-20] MEDS: INSULIN GLARGINE UD 100 UNITS/ML SYR SUBCUT SCH (11:13)
[2021-06-20] MEDS: ZINC SULFATE 220 MG ( 50 ) CAPSULE PO SCH (11:14)
[2021-06-20] MEDS: MIDAZOLAM HCL 100 MG in SODIUM CHLORIDE 0.9% 80 ML IV PRN (15:02)
[2021-06-21] VITALS (95 sets, daily range): BP systolic 96–168; BP diastolic 38–105
[2021-06-21] MEDS: BLOOD SUGAR DIAGNOSTIC STRIP TEST SCH ×5 (00:01→23:51)
[2021-06-21] MEDS: METOCLOPRAMIDE HCL 10MG/2ML VIAL IV SCH ×5 (00:07→23:52)
[2021-06-21] MEDS: IPRATROPIUM/ALBUTEROL 0.5-3(2.5)MG/3ML NEB HHN SCH ×6 (00:15→21:14)
[2021-06-21] MEDS: MIDAZOLAM HCL 100 MG in SODIUM CHLORIDE 0.9% 80 ML IV PRN ×2 (01:15→13:24)
[2021-06-21] MEDS: FENTANYL CITRATE/PF 2,500 MCG in SODIUM CHLORIDE 0.9% 200 ML IV PRN ×3 (04:56→21:51)
[2021-06-21] MEDS: INSULIN LISPRO 100 UNITS/ML SUBCUT SCH ×5 (05:18→23:53)
[2021-06-21 05:27] LABS: BASOPHILS % 0.1 % (0.0-2.0); HEMATOCRIT. 31.1 % (36.0-48.0); HEMOGLOBIN. 10.5 g/dL (12.0-16.0); LYMPHOCYTES % 7.2 % (20.0-50.0); MEAN CORPUSCULAR HEMOGLOBIN 31.2 pg (28.0-32.0); MEAN CORPUSCULAR VOLUME 92.4 fL (81.0-99.0); MONOCYTES % 8.8 % (2.0-8.0); NEUTROPHILS % 83.9 % (40.0-76.0); PLATELET 67 x1000/uL (130-400); RED BLOOD CELL COUNT 3.36 mill/uL (4.2-5.4); RED CELL DISTRIBUTION WIDTH 14.7 % (11.6-14.6)
[2021-06-21] MEDS: ZINC SULFATE 220 MG ( 50 ) CAPSULE PO SCH (09:34)
[2021-06-21] MEDS: DEXAMETHASONE 10 MG/ML VIAL IV SCH (09:34)
[2021-06-21] MEDS: ERGOCALCIFEROL 50000UNITS CAPSULE PO SCH (09:34)
[2021-06-21] MEDS: PANTOPRAZOLE SODIUM 40 MG/VIAL IV SCH (09:34)
[2021-06-21] MEDS: INSULIN GLARGINE UD 100 UNITS/ML SYR SUBCUT SCH (09:34)
[2021-06-21 10:26] LABS: BG BASE EXCESS 2.6 mmol/L (-2.0-2.0); BG CARBOXYHEMOGLOBIN 1.4 % (0.5-1.5); BG DEOXYHEMOGLOBIN 4.5 % (0.0-5.0); BG FRACTION INSPIRED OXYGEN 100; BG HCO3 ACT 27.6 mmol/L (22.0-26.0); BG METHEMOGLOBIN 0.1 % (0.0-1.5); BG OXYGEN SATURATION 95.4 % (92.0-98.5); BG PCO2 44.4 mmHg (35.0-45.0); BG PH 7.412 (7.350-7.450); BG PO2 78.4 mmHg (75.0-100.0); BG SAMPLE SITE RIGHT RADIAL; BG TOTAL RESPIRATORY RATE 40 b/min; BG VENT MODE AC/PRVC
[2021-06-21 14:21] LABS: BG BASE EXCESS -0.4 mmol/L (-2.0-2.0); BG CARBOXYHEMOGLOBIN 1.4 % (0.5-1.5); BG DEOXYHEMOGLOBIN 8.3 % (0.0-5.0); BG FRACTION INSPIRED OXYGEN 100; BG METHEMOGLOBIN 0.3 % (0.0-1.5); BG OXYGEN SATURATION 91.6 % (92.0-98.5); BG PCO2 50.5 mmHg (35.0-45.0); BG PH 7.329 (7.350-7.450); BG PO2 68.9 mmHg (75.0-100.0); BG SAMPLE SITE RIGHT RADIAL; BG TOTAL HEMOGLOBIN 10.3 g/dL (12.0-18.0); BG TOTAL RESPIRATORY RATE 42 b/min; BG VENT MODE VENT - P/C
[2021-06-22] VITALS (96 sets, daily range): BP systolic 100–141; BP diastolic 53–82
[2021-06-22] MEDS: MIDAZOLAM HCL 100 MG in SODIUM CHLORIDE 0.9% 80 ML IV PRN ×4 (00:05→22:13)
[2021-06-22] MEDS: IPRATROPIUM/ALBUTEROL 0.5-3(2.5)MG/3ML NEB HHN SCH ×6 (00:27→20:41)
[2021-06-22] MEDS: METOCLOPRAMIDE HCL 10MG/2ML VIAL IV SCH ×3 (05:35→17:20)
[2021-06-22] MEDS: FENTANYL CITRATE/PF 2,500 MCG in SODIUM CHLORIDE 0.9% 200 ML IV PRN ×3 (05:57→20:43)
[2021-06-22] MEDS: INSULIN LISPRO 100 UNITS/ML SUBCUT SCH ×3 (06:00→17:20)
[2021-06-22] MEDS: BLOOD SUGAR DIAGNOSTIC STRIP TEST SCH ×3 (06:00→17:20)
[2021-06-22] MEDS: PANTOPRAZOLE SODIUM 40 MG/VIAL IV SCH (08:11)
[2021-06-22] MEDS: DEXAMETHASONE 10 MG/ML VIAL IV SCH (08:11)
[2021-06-22] MEDS: ZINC SULFATE 220 MG ( 50 ) CAPSULE PO SCH (08:11)
[2021-06-22 08:36] LABS: BG BASE EXCESS -2.1 mmol/L (-2.0-2.0); BG CARBOXYHEMOGLOBIN 2.3 % (0.5-1.5); BG DEOXYHEMOGLOBIN 19.1 % (0.0-5.0); BG HCO3 ACT 25.6 mmol/L (22.0-26.0); BG METHEMOGLOBIN 0.1 % (0.0-1.5); BG OXYGEN SATURATION 80.4 % (92.0-98.5); BG OXYHEMOGLOBIN 78.5 % (94.0-97.0); BG PCO2 57.2 mmHg (35.0-45.0); BG PH 7.268 (7.350-7.450); BG PO2 49.5 mmHg (75.0-100.0); BG SAMPLE SITE RIGHT RADIAL; BG TOTAL HEMOGLOBIN 12.3 g/dL (12.0-18.0); BG VENT MODE VENT - P/C
[2021-06-22] MEDS ORDERED: VECURONIUM BROMIDE 10 MG/VIAL IV NR ×2 (09:45→14:45)
[2021-06-22] MEDS: INSULIN GLARGINE UD 100 UNITS/ML SYR SUBCUT SCH (09:56)
[2021-06-22] MEDS: PROPOFOL 10MG/ML 100ML 100 ML IV PRN ×4 (11:45→22:13)
[2021-06-22 13:54] LABS: BG BASE EXCESS -1.2 mmol/L (-2.0-2.0); BG CARBOXYHEMOGLOBIN 2.2 % (0.5-1.5); BG DEOXYHEMOGLOBIN 14.2 % (0.0-5.0); BG FRACTION INSPIRED OXYGEN 100; BG HCO3 ACT 26.4 mmol/L (22.0-26.0); BG METHEMOGLOBIN 0.5 % (0.0-1.5); BG OXYGEN SATURATION 85.4 % (92.0-98.5); BG OXYHEMOGLOBIN 83.1 % (94.0-97.0); BG PCO2 60.5 mmHg (35.0-45.0); BG PH 7.258 (7.350-7.450); BG PO2 55.7 mmHg (75.0-100.0); BG SAMPLE SITE RIGHT RADIAL; BG TOTAL HEMOGLOBIN 9.7 g/dL (12.0-18.0); BG TOTAL RESPIRATORY RATE 40 b/min; BG VENT MODE VENT - P/C
[2021-06-23] VITALS (96 sets, daily range): BP systolic 105–144; BP diastolic 41–77
[2021-06-23] MEDS: IPRATROPIUM/ALBUTEROL 0.5-3(2.5)MG/3ML NEB HHN SCH ×6 (00:37→20:25)
[2021-06-23] MEDS: METOCLOPRAMIDE HCL 10MG/2ML VIAL IV SCH ×4 (00:43→17:13)
[2021-06-23] MEDS: PROPOFOL 10MG/ML 100ML 100 ML IV PRN ×5 (02:09→23:11)
[2021-06-23] MEDS: FENTANYL CITRATE/PF 2,500 MCG in SODIUM CHLORIDE 0.9% 200 ML IV PRN ×3 (04:47→20:35)
[2021-06-23 05:41] LABS: BASOPHILS % 0.3 % (0.0-2.0); EOSINOPHILS % 0.6 % (0.0-5.0); HEMATOCRIT. 25.5 % (36.0-48.0); HEMOGLOBIN. 8.5 g/dL (12.0-16.0); LYMPHOCYTES % 8.9 % (20.0-50.0); MEAN CORPUSCULAR HEMOGLOBIN 31.2 pg (28.0-32.0); MEAN CORPUSCULAR VOLUME 93.6 fL (81.0-99.0); MONOCYTES % 6.9 % (2.0-8.0); NEUTROPHILS % 83.3 % (40.0-76.0); RED BLOOD CELL COUNT 2.72 mill/uL (4.2-5.4); RED CELL DISTRIBUTION WIDTH 14.4 % (11.6-14.6)
[2021-06-23] MEDS: INSULIN LISPRO 100 UNITS/ML SUBCUT SCH ×4 (06:00→17:18)
[2021-06-23] MEDS: BLOOD SUGAR DIAGNOSTIC STRIP TEST SCH ×4 (06:37→17:13)
[2021-06-23] MEDS: MIDAZOLAM HCL 100 MG in SODIUM CHLORIDE 0.9% 80 ML IV PRN ×3 (07:20→22:19)
[2021-06-23] MEDS: ZINC SULFATE 220 MG ( 50 ) CAPSULE PO SCH (08:06)
[2021-06-23] MEDS: PANTOPRAZOLE SODIUM 40 MG/VIAL IV SCH (08:06)
[2021-06-23] MEDS: DEXAMETHASONE 10 MG/ML VIAL IV SCH (08:06)
[2021-06-23 09:36] LABS: BG BASE EXCESS -1.6 mmol/L (-2.0-2.0); BG CARBOXYHEMOGLOBIN 0.2 % (0.5-1.5); BG DEOXYHEMOGLOBIN 3.3 % (0.0-5.0); BG FRACTION INSPIRED OXYGEN 100; BG HCO3 ACT 25.3 mmol/L (22.0-26.0); BG METHEMOGLOBIN 0.1 % (0.0-1.5); BG OXYGEN SATURATION 96.7 % (92.0-98.5); BG OXYHEMOGLOBIN 96.4 % (94.0-97.0); BG PCO2 53.6 mmHg (35.0-45.0); BG PH 7.291 (7.350-7.450); BG SAMPLE SITE LEFT RADIAL; BG TOTAL HEMOGLOBIN 9.4 g/dL (12.0-18.0); BG TOTAL RESPIRATORY RATE 40 b/min; BG VENT MODE VENT - P/C
[2021-06-23] MEDS: INSULIN GLARGINE UD 100 UNITS/ML SYR SUBCUT SCH (09:46)
[2021-06-23] MEDS ORDERED: BISACODYL 10MG SUPP RC NR (11:00)
[2021-06-24] VITALS (87 sets, daily range): BP systolic 113–139; BP diastolic 49–79
[2021-06-24] MEDS: METOCLOPRAMIDE HCL 10MG/2ML VIAL IV SCH ×4 (00:06→17:53)
[2021-06-24] MEDS: BLOOD SUGAR DIAGNOSTIC STRIP TEST SCH ×4 (00:06→17:53)
[2021-06-24] MEDS: PROPOFOL 10MG/ML 100ML 100 ML IV PRN ×6 (04:14→22:35)
[2021-06-24] MEDS: IPRATROPIUM/ALBUTEROL 0.5-3(2.5)MG/3ML NEB HHN SCH ×6 (04:22→20:27)
[2021-06-24] MEDS: FENTANYL CITRATE/PF 2,500 MCG in SODIUM CHLORIDE 0.9% 200 ML IV PRN ×3 (04:27→20:22)
[2021-06-24] MEDS: INSULIN LISPRO 100 UNITS/ML SUBCUT SCH ×4 (06:00→17:54)
[2021-06-24] MEDS: MIDAZOLAM HCL 100 MG in SODIUM CHLORIDE 0.9% 80 ML IV PRN ×3 (06:08→20:23)
[2021-06-24] MEDS: INSULIN GLARGINE UD 100 UNITS/ML SYR SUBCUT SCH (09:29)
[2021-06-24] MEDS: DEXAMETHASONE 10 MG/ML VIAL IV SCH (09:29)
[2021-06-24] MEDS: PANTOPRAZOLE SODIUM 40 MG/VIAL IV SCH (09:29)
[2021-06-24] MEDS: ZINC SULFATE 220 MG ( 50 ) CAPSULE PO SCH (09:29)
[2021-06-24 10:18] LABS: BG BASE EXCESS 1.5 mmol/L (-2.0-2.0); BG CARBOXYHEMOGLOBIN 0.9 % (0.5-1.5); BG DEOXYHEMOGLOBIN 2.4 % (0.0-5.0); BG FRACTION INSPIRED OXYGEN 100; BG HCO3 ACT 26.5 mmol/L (22.0-26.0); BG METHEMOGLOBIN 0.3 % (0.0-1.5); BG OXYGEN SATURATION 97.6 % (92.0-98.5); BG OXYHEMOGLOBIN 96.4 % (94.0-97.0); BG PCO2 43.7 mmHg (35.0-45.0); BG PO2 101.9 mmHg (75.0-100.0); BG SAMPLE SITE RIGHT RADIAL; BG TOTAL HEMOGLOBIN 8.9 g/dL (12.0-18.0); BG VENT MODE VENT - P/C
[2021-06-24] MEDS ORDERED: PROPOFOL 10MG/ML 100ML 100 ML IV PRN (12:00)
[2021-06-25] VITALS (96 sets, daily range): BP systolic 92–159; BP diastolic 44–84
[2021-06-25] MEDS: BLOOD SUGAR DIAGNOSTIC STRIP TEST SCH ×4 (00:13→17:02)
[2021-06-25] MEDS: METOCLOPRAMIDE HCL 10MG/2ML VIAL IV SCH ×4 (00:16→18:21)
[2021-06-25] MEDS: IPRATROPIUM/ALBUTEROL 0.5-3(2.5)MG/3ML NEB HHN SCH ×6 (00:27→20:42)
[2021-06-25] MEDS: PROPOFOL 10MG/ML 100ML 100 ML IV PRN ×8 (02:03→22:46)
[2021-06-25] MEDS: MIDAZOLAM HCL 100 MG in SODIUM CHLORIDE 0.9% 80 ML IV PRN ×4 (04:10→22:45)
[2021-06-25] MEDS: FENTANYL CITRATE/PF 2,500 MCG in SODIUM CHLORIDE 0.9% 200 ML IV PRN ×3 (04:43→19:25)
[2021-06-25 05:12] LABS: CHLORIDE 114 mEq/L (98-107)
[2021-06-25 05:16] LABS: BASOPHILS % 0.5 % (0.0-2.0); EOSINOPHILS % 1.9 % (0.0-5.0); HEMOGLOBIN. 8.7 g/dL (12.0-16.0); LYMPHOCYTES % 13.8 % (20.0-50.0); MEAN CORPUSCULAR HEMOGLOBIN 31.1 pg (28.0-32.0); MEAN CORPUSCULAR VOLUME 96.5 fL (81.0-99.0); MONOCYTES % 7.3 % (2.0-8.0); NEUTROPHILS % 76.5 % (40.0-76.0); RED CELL DISTRIBUTION WIDTH 15.1 % (11.6-14.6)
[2021-06-25] MEDS: INSULIN LISPRO 100 UNITS/ML SUBCUT SCH ×4 (05:23→17:02)
[2021-06-25 08:51] LABS: BG BASE EXCESS 1.7 mmol/L (-2.0-2.0); BG CARBOXYHEMOGLOBIN 0.3 % (0.5-1.5); BG DEOXYHEMOGLOBIN 3.2 % (0.0-5.0); BG HCO3 ACT 27.6 mmol/L (22.0-26.0); BG METHEMOGLOBIN 0.3 % (0.0-1.5); BG OXYGEN SATURATION 96.8 % (92.0-98.5); BG OXYHEMOGLOBIN 96.2 % (94.0-97.0); BG PCO2 49.9 mmHg (35.0-45.0); BG PO2 93.8 mmHg (75.0-100.0); BG SAMPLE SITE RIGHT RADIAL; BG TOTAL HEMOGLOBIN 8.6 g/dL (12.0-18.0); BG VENT MODE VENT - P/C
[2021-06-25] MEDS: DEXAMETHASONE 10 MG/ML VIAL IV SCH (09:15)
[2021-06-25] MEDS: ZINC SULFATE 220 MG ( 50 ) CAPSULE PO SCH (09:15)
[2021-06-25] MEDS: PANTOPRAZOLE SODIUM 40 MG/VIAL IV SCH (09:15)
[2021-06-25] MEDS: INSULIN GLARGINE UD 100 UNITS/ML SYR SUBCUT SCH (10:39)
[2021-06-25] MEDS ORDERED: PROPOFOL 10MG/ML 100ML 100 ML IV PRN (12:45)
[2021-06-25] MEDS: BISACODYL 10MG SUPP PR PRN (18:21)
[2021-06-26] VITALS (83 sets, daily range): BP systolic 86–148; BP diastolic 45–105
[2021-06-26] MEDS: BLOOD SUGAR DIAGNOSTIC STRIP TEST SCH ×4 (00:21→18:17)
[2021-06-26] MEDS: METOCLOPRAMIDE HCL 10MG/2ML VIAL IV SCH ×4 (00:25→18:17)
[2021-06-26] MEDS: IPRATROPIUM/ALBUTEROL 0.5-3(2.5)MG/3ML NEB HHN SCH ×5 (00:35→20:21)
[2021-06-26] MEDS: PROPOFOL 10MG/ML 100ML 100 ML IV PRN ×7 (01:28→20:21)
[2021-06-26] MEDS: FENTANYL CITRATE/PF 2,500 MCG in SODIUM CHLORIDE 0.9% 200 ML IV PRN ×3 (03:19→18:56)
[2021-06-26 05:08] LABS: BASOPHILS % 0.5 % (0.0-2.0); CHLORIDE 113 mEq/L (98-107); EOSINOPHILS % 2.1 % (0.0-5.0); HEMATOCRIT. 28.4 % (36.0-48.0); HEMOGLOBIN. 8.9 g/dL (12.0-16.0); LYMPHOCYTES % 7.7 % (20.0-50.0); MEAN CORPUSCULAR HEMOGLOBIN 30.4 pg (28.0-32.0); MEAN CORPUSCULAR VOLUME 97.5 fL (81.0-99.0); MEAN PLATELET VOLUME 10.3 fl (7.4-10.4); MONOCYTES % 4.2 % (2.0-8.0); NEUTROPHILS % 85.5 % (40.0-76.0); PLATELET 110 x1000/uL (130-400); RED BLOOD CELL COUNT 2.92 mill/uL (4.2-5.4); RED CELL DISTRIBUTION WIDTH 15.5 % (11.6-14.6)
[2021-06-26] MEDS: INSULIN LISPRO 100 UNITS/ML SUBCUT SCH ×4 (06:00→18:00)
[2021-06-26] MEDS: DEXTROSE 50% WATER 50ML SYRINGE IV PRN ×3 (06:12→18:17)
[2021-06-26] MEDS: MIDAZOLAM HCL 100 MG in SODIUM CHLORIDE 0.9% 80 ML IV PRN ×3 (06:23→21:31)
[2021-06-26] MEDS: ZINC SULFATE 220 MG ( 50 ) CAPSULE PO SCH (09:00)
[2021-06-26 10:50] LABS: BG BASE EXCESS 1.1 mmol/L (-2.0-2.0); BG CARBOXYHEMOGLOBIN 0.3 % (0.5-1.5); BG DEOXYHEMOGLOBIN 7.9 % (0.0-5.0); BG FRACTION INSPIRED OXYGEN 100; BG METHEMOGLOBIN 0.1 % (0.0-1.5); BG OXYGEN SATURATION 92.1 % (92.0-98.5); BG OXYHEMOGLOBIN 91.7 % (94.0-97.0); BG PO2 74.2 mmHg (75.0-100.0); BG SAMPLE SITE RIGHT RADIAL; BG TOTAL HEMOGLOBIN 9.2 g/dL (12.0-18.0); BG TOTAL RESPIRATORY RATE 40 b/min; BG VENT MODE VENT - P/C
[2021-06-26] MEDS: PANTOPRAZOLE SODIUM 40 MG/VIAL IV SCH (11:14)
[2021-06-26] MEDS: DEXAMETHASONE 10 MG/ML VIAL IV SCH (11:14)
[2021-06-26] MEDS: INSULIN GLARGINE UD 100 UNITS/ML SYR SUBCUT SCH (11:15)
[2021-06-27] VITALS (93 sets, daily range): BP systolic 103–146; BP diastolic 45–82
[2021-06-27] MEDS: BLOOD SUGAR DIAGNOSTIC STRIP TEST SCH ×5 (00:14→23:55)
[2021-06-27] MEDS: METOCLOPRAMIDE HCL 10MG/2ML VIAL IV SCH ×5 (00:16→23:55)
[2021-06-27] MEDS: PROPOFOL 10MG/ML 100ML 100 ML IV PRN ×8 (00:16→22:42)
[2021-06-27] MEDS: IPRATROPIUM/ALBUTEROL 0.5-3(2.5)MG/3ML NEB HHN SCH ×6 (00:29→20:24)
[2021-06-27] MEDS: FENTANYL CITRATE/PF 2,500 MCG in SODIUM CHLORIDE 0.9% 200 ML IV PRN ×3 (02:29→20:47)
[2021-06-27 05:05] LABS: CHLORIDE 112 mEq/L (98-107)
[2021-06-27 05:07] LABS: BASOPHILS % 0.5 % (0.0-2.0); EOSINOPHILS % 4.2 % (0.0-5.0); HEMATOCRIT. 24.3 % (36.0-48.0); LYMPHOCYTES % 8.8 % (20.0-50.0); MEAN CORPUSCULAR HEMOGLOBIN 30.6 pg (28.0-32.0); MEAN PLATELET VOLUME 10.9 fl (7.4-10.4); MONOCYTES % 4.7 % (2.0-8.0); NEUTROPHILS % 81.8 % (40.0-76.0); PLATELET 86 x1000/uL (130-400); RED BLOOD CELL COUNT 2.62 mill/uL (4.2-5.4); RED CELL DISTRIBUTION WIDTH 15.1 % (11.6-14.6)
[2021-06-27] MEDS: INSULIN LISPRO 100 UNITS/ML SUBCUT SCH ×5 (06:00→23:55)
[2021-06-27] MEDS: MIDAZOLAM HCL 100 MG in SODIUM CHLORIDE 0.9% 80 ML IV PRN ×2 (06:15→19:04)
[2021-06-27] MEDS: DEXTROSE 50% WATER 50ML SYRINGE IV PRN (06:19)
[2021-06-27 09:51] LABS: BG BASE EXCESS 2.3 mmol/L (-2.0-2.0); BG CARBOXYHEMOGLOBIN 0.5 % (0.5-1.5); BG DEOXYHEMOGLOBIN 3.4 % (0.0-5.0); BG FRACTION INSPIRED OXYGEN 100; BG HCO3 ACT 27.3 mmol/L (22.0-26.0); BG METHEMOGLOBIN 0.2 % (0.0-1.5); BG OXYGEN SATURATION 96.6 % (92.0-98.5); BG OXYHEMOGLOBIN 95.9 % (94.0-97.0); BG PCO2 44.4 mmHg (35.0-45.0); BG PH 7.407 (7.350-7.450); BG PO2 89.2 mmHg (75.0-100.0); BG SAMPLE SITE RIGHT RADIAL; BG TOTAL HEMOGLOBIN 8.7 g/dL (12.0-18.0); BG VENT MODE VENT - PRVC
[2021-06-27] MEDS: DEXAMETHASONE 10 MG/ML VIAL IV SCH (10:19)
[2021-06-27] MEDS: ZINC SULFATE 220 MG ( 50 ) CAPSULE PO SCH (10:19)
[2021-06-27] MEDS: PANTOPRAZOLE SODIUM 40 MG/VIAL IV SCH (10:19)
[2021-06-27] MEDS: FUROSEMIDE 40MG/4ML VIAL IVP SCH (13:08)
[2021-06-28] VITALS (97 sets, daily range): BP systolic 107–150; BP diastolic 56–90
[2021-06-28] MEDS: IPRATROPIUM/ALBUTEROL 0.5-3(2.5)MG/3ML NEB HHN SCH ×5 (00:11→20:47)
[2021-06-28] MEDS: PROPOFOL 10MG/ML 100ML 100 ML IV PRN ×7 (03:07→22:18)
[2021-06-28] MEDS: MIDAZOLAM HCL 100 MG in SODIUM CHLORIDE 0.9% 80 ML IV PRN ×2 (03:44→16:06)
[2021-06-28] MEDS: BLOOD SUGAR DIAGNOSTIC STRIP TEST SCH ×3 (05:19→16:40)
[2021-06-28] MEDS: INSULIN LISPRO 100 UNITS/ML SUBCUT SCH ×3 (05:19→16:40)
[2021-06-28] MEDS: METOCLOPRAMIDE HCL 10MG/2ML VIAL IV SCH ×3 (05:19→18:45)
[2021-06-28] MEDS: FENTANYL CITRATE/PF 2,500 MCG in SODIUM CHLORIDE 0.9% 200 ML IV PRN ×2 (05:32→16:08)
[2021-06-28 05:40] LABS: HEMATOCRIT. 24.8 % (36.0-48.0); MEAN CORPUSCULAR HEMOGLOBIN 30.3 pg (28.0-32.0); MEAN CORPUSCULAR VOLUME 93.4 fL (81.0-99.0); RED BLOOD CELL COUNT 2.65 mill/uL (4.2-5.4); RED CELL DISTRIBUTION WIDTH 15.1 % (11.6-14.6)
[2021-06-28 08:15] LABS: NUCLEATED RED BLOOD CELLS 1 /100 WBC
[2021-06-28 08:30] LABS: BG BASE EXCESS -0.7 mmol/L (-2.0-2.0); BG DEOXYHEMOGLOBIN 11.6 % (0.0-5.0); BG HCO3 ACT 24.4 mmol/L (22.0-26.0); BG METHEMOGLOBIN 0.4 % (0.0-1.5); BG OXYGEN SATURATION 88.2 % (92.0-98.5); BG PCO2 42.4 mmHg (35.0-45.0); BG PH 7.378 (7.350-7.450); BG SAMPLE SITE RIGHT RADIAL; BG TOTAL HEMOGLOBIN 8.4 g/dL (12.0-18.0); BG VENT MODE VENT- PRVC
[2021-06-28] MEDS: ERGOCALCIFEROL 50000UNITS CAPSULE PO SCH ×2 (09:05→09:21)
[2021-06-28] MEDS: ZINC SULFATE 220 MG ( 50 ) CAPSULE PO SCH (09:05)
[2021-06-28] MEDS: FUROSEMIDE 40MG/4ML VIAL IVP SCH ×2 (09:05→09:21)
[2021-06-28] MEDS: PANTOPRAZOLE SODIUM 40 MG/VIAL IV SCH ×2 (09:05→09:21)
[2021-06-28] MEDS: DEXAMETHASONE 10 MG/ML VIAL IV SCH ×2 (09:05→09:21)
[2021-06-28] MEDS: BISACODYL 10MG SUPP PR PRN (09:22)
[2021-06-28] MEDS ORDERED: NA PHOS,M-B/NA PHOS,DI-BA ENEMA 118ML PR NR (12:30)
[2021-06-28] MEDS: LACTULOSE 20G/30ML UDC PO SCH ×2 (13:44→22:16)
[2021-06-28 19:05] LABS: INR 1.1; PROTHROMBIN TIME 11.7 sec (9.6-11.0)
[2021-06-29] VITALS (95 sets, daily range): BP systolic 71–146; BP diastolic 15–105
[2021-06-29] MEDS: METOCLOPRAMIDE HCL 10MG/2ML VIAL IV SCH ×5 (00:16→23:17)
[2021-06-29] MEDS: BLOOD SUGAR DIAGNOSTIC STRIP TEST SCH ×4 (00:17→17:44)
[2021-06-29] MEDS: IPRATROPIUM/ALBUTEROL 0.5-3(2.5)MG/3ML NEB HHN SCH ×6 (00:18→20:19)
[2021-06-29] MEDS: FENTANYL CITRATE/PF 2,500 MCG in SODIUM CHLORIDE 0.9% 200 ML IV PRN ×3 (00:27→18:51)
[2021-06-29] MEDS: MIDAZOLAM HCL 100 MG in SODIUM CHLORIDE 0.9% 80 ML IV PRN ×3 (01:52→22:52)
[2021-06-29] MEDS: PROPOFOL 10MG/ML 100ML 100 ML IV PRN ×5 (05:05→19:58)
[2021-06-29 05:10] LABS: BASOPHILS % 0.3 % (0.0-2.0); EOSINOPHILS % 10.3 % (0.0-5.0); HEMATOCRIT. 24.5 % (36.0-48.0); HEMOGLOBIN. 8.2 g/dL (12.0-16.0); LYMPHOCYTES % 10.6 % (20.0-50.0); MEAN CORPUSCULAR HEMOGLOBIN 30.9 pg (28.0-32.0); MEAN CORPUSCULAR VOLUME 92.7 fL (81.0-99.0); MEAN PLATELET VOLUME 8.4 fl (7.4-10.4); MONOCYTES % 6.2 % (2.0-8.0); NEUTROPHILS % 72.6 % (40.0-76.0); PLATELET 112 x1000/uL (130-400); RED BLOOD CELL COUNT 2.64 mill/uL (4.2-5.4); RED CELL DISTRIBUTION WIDTH 14.7 % (11.6-14.6)
[2021-06-29] MEDS: LACTULOSE 20G/30ML UDC PO SCH ×3 (05:32→21:44)
[2021-06-29] MEDS: INSULIN LISPRO 100 UNITS/ML SUBCUT SCH ×4 (05:33→17:44)
[2021-06-29] MEDS: ZINC SULFATE 220 MG ( 50 ) CAPSULE PO SCH (08:37)
[2021-06-29] MEDS ORDERED: POTASSIUM CHLORIDE 20MEQ TABLET SR PO SCH (09:45)
[2021-06-29 10:12] LABS: BG BASE EXCESS -0.6 mmol/L (-2.0-2.0); BG CARBOXYHEMOGLOBIN 0.8 % (0.5-1.5); BG DEOXYHEMOGLOBIN 8.5 % (0.0-5.0); BG FRACTION INSPIRED OXYGEN 100; BG HCO3 ACT 24.5 mmol/L (22.0-26.0); BG METHEMOGLOBIN 0.3 % (0.0-1.5); BG OXYGEN SATURATION 91.4 % (92.0-98.5); BG OXYHEMOGLOBIN 90.4 % (94.0-97.0); BG PCO2 41.8 mmHg (35.0-45.0); BG PH 7.385 (7.350-7.450); BG PO2 65.4 mmHg (75.0-100.0); BG SAMPLE SITE RIGHT RADIAL; BG TOTAL HEMOGLOBIN 8.2 g/dL (12.0-18.0); BG VENT MODE VENT - PRVC
[2021-06-29] MEDS: ACETAMINOPHEN 650MG SUPP PR PRN (15:10)
[2021-06-29] MEDS: CEFEPIME 2,000 MG in DEXT 5% WATER 100 ML IV SCH (16:23)
[2021-06-29] MEDS: ACETAMINOPHEN 650MG/20.3ML UDC PO PRN (21:45)
[2021-06-29 22:17] LABS: BG BASE EXCESS -1.4 mmol/L (-2.0-2.0); BG CARBOXYHEMOGLOBIN 1.2 % (0.5-1.5); BG DEOXYHEMOGLOBIN 37.1 % (0.0-5.0); BG FRACTION INSPIRED OXYGEN 100; BG HCO3 ACT 25.3 mmol/L (22.0-26.0); BG METHEMOGLOBIN 0.3 % (0.0-1.5); BG OXYGEN SATURATION 62.3 % (92.0-98.5); BG OXYHEMOGLOBIN 61.4 % (94.0-97.0); BG PCO2 51.3 mmHg (35.0-45.0); BG PH 7.311 (7.350-7.450); BG PO2 35.4 mmHg (75.0-100.0); BG SAMPLE SITE RIGHT RADIAL; BG TOTAL HEMOGLOBIN 11.2 g/dL (12.0-18.0)
[2021-06-29] MEDS ORDERED: SODIUM BICARBONATE 8.4% 1 MEQ/ML 50ML SYR IV ONE (22:49)
[2021-06-29] MEDS: PHENYLEPHRINE 100 MG in DEXT 5% WATER 240 ML IV PRN (22:53)
[2021-06-29] MEDS ORDERED: SODIUM BICARBONATE 8.4% 1 MEQ/ML 50ML SYR IV NR (23:00)
[2021-06-30] VITALS (100 sets, daily range): BP systolic 42–155; BP diastolic 14–93
[2021-06-30] MEDS: IPRATROPIUM/ALBUTEROL 0.5-3(2.5)MG/3ML NEB HHN SCH ×6 (00:13→20:34)
[2021-06-30] MEDS: BLOOD SUGAR DIAGNOSTIC STRIP TEST SCH ×4 (00:26→17:50)
[2021-06-30] MEDS: DEXTROSE 50% WATER 50ML SYRINGE IV PRN (00:29)
[2021-06-30] MEDS: CEFEPIME 2,000 MG in DEXT 5% WATER 100 ML IV SCH ×3 (00:30→17:50)
[2021-06-30] MEDS: PROPOFOL 10MG/ML 100ML 100 ML IV PRN ×4 (00:34→22:13)
[2021-06-30] MEDS: FENTANYL CITRATE/PF 2,500 MCG in SODIUM CHLORIDE 0.9% 200 ML IV PRN (03:49)
[2021-06-30 05:02] LABS: BASOPHILS % 0.5 % (0.0-2.0); EOSINOPHILS % 12.1 % (0.0-5.0); HEMATOCRIT. 30.8 % (36.0-48.0); HEMOGLOBIN. 9.5 g/dL (12.0-16.0); LYMPHOCYTES % 17.9 % (20.0-50.0); MEAN CORPUSCULAR HEMOGLOBIN 29.7 pg (28.0-32.0); MEAN PLATELET VOLUME 10.3 fl (7.4-10.4); MONOCYTES % 4.6 % (2.0-8.0); NEUTROPHILS % 64.9 % (40.0-76.0); PLATELET 205 x1000/uL (130-400); RED CELL DISTRIBUTION WIDTH 15.8 % (11.6-14.6)
[2021-06-30] MEDS: METOCLOPRAMIDE HCL 10MG/2ML VIAL IV SCH ×3 (05:49→17:50)
[2021-06-30] MEDS: LACTULOSE 20G/30ML UDC PO SCH ×3 (05:49→22:00)
[2021-06-30] MEDS: INSULIN LISPRO 100 UNITS/ML SUBCUT SCH ×4 (05:50→17:50)
[2021-06-30] MEDS: PHENYLEPHRINE 100 MG in DEXT 5% WATER 240 ML IV PRN ×2 (06:42→14:44)
[2021-06-30] MEDS: ACETAMINOPHEN 650MG/20.3ML UDC PO PRN (08:32)
[2021-06-30] MEDS: PANTOPRAZOLE SODIUM 40 MG/VIAL IV SCH (08:32)
[2021-06-30] MEDS: FUROSEMIDE 40MG/4ML VIAL IVP SCH (08:32)
[2021-06-30] MEDS: DEXAMETHASONE 10 MG/ML VIAL IV SCH (08:33)
[2021-06-30] MEDS: ZINC SULFATE 220 MG ( 50 ) CAPSULE PO SCH (08:34)
[2021-06-30] MEDS: MIDAZOLAM HCL 100 MG in SODIUM CHLORIDE 0.9% 80 ML IV PRN ×2 (08:43→21:13)
[2021-06-30 10:21] LABS: BG CARBOXYHEMOGLOBIN 1.6 % (0.5-1.5); BG DEOXYHEMOGLOBIN 24.7 % (0.0-5.0); BG FRACTION INSPIRED OXYGEN 100; BG HCO3 ACT 24.6 mmol/L (22.0-26.0); BG METHEMOGLOBIN 0.3 % (0.0-1.5); BG OXYGEN SATURATION 74.8 % (92.0-98.5); BG OXYHEMOGLOBIN 73.4 % (94.0-97.0); BG PH 7.253 (7.350-7.450); BG PO2 45.5 mmHg (75.0-100.0); BG SAMPLE SITE RIGHT RADIAL; BG TOTAL HEMOGLOBIN 10.5 g/dL (12.0-18.0); BG VENT MODE VENT - PRVC
[2021-07-01] VITALS (96 sets, daily range): BP systolic 83–156; BP diastolic 44–95
[2021-07-01] MEDS: CEFEPIME 2,000 MG in DEXT 5% WATER 100 ML IV SCH ×3 (00:11→21:13)
[2021-07-01] MEDS: BLOOD SUGAR DIAGNOSTIC STRIP TEST SCH ×4 (00:11→17:48)
[2021-07-01] MEDS: FENTANYL CITRATE/PF 2,500 MCG in SODIUM CHLORIDE 0.9% 200 ML IV PRN ×2 (00:20→22:08)
[2021-07-01] MEDS: METOCLOPRAMIDE HCL 10MG/2ML VIAL IV SCH ×4 (00:21→17:50)
[2021-07-01] MEDS: IPRATROPIUM/ALBUTEROL 0.5-3(2.5)MG/3ML NEB HHN SCH ×6 (00:27→20:12)
[2021-07-01] MEDS: INSULIN LISPRO 100 UNITS/ML SUBCUT SCH ×4 (00:29→17:50)
[2021-07-01 05:15] LABS: BASOPHILS % 0.8 % (0.0-2.0); EOSINOPHILS % 1.2 % (0.0-5.0); HEMATOCRIT. 30.6 % (36.0-48.0); HEMOGLOBIN. 9.5 g/dL (12.0-16.0); LYMPHOCYTES % 14.5 % (20.0-50.0); MEAN CORPUSCULAR HEMOGLOBIN 30.2 pg (28.0-32.0); MEAN CORPUSCULAR VOLUME 97.6 fL (81.0-99.0); MONOCYTES % 7.3 % (2.0-8.0); NEUTROPHILS % 76.2 % (40.0-76.0); RED BLOOD CELL COUNT 3.14 mill/uL (4.2-5.4); RED CELL DISTRIBUTION WIDTH 16.3 % (11.6-14.6)
[2021-07-01] MEDS: LACTULOSE 20G/30ML UDC PO SCH ×2 (06:00→21:14)
[2021-07-01] MEDS: PROPOFOL 10MG/ML 100ML 100 ML IV PRN ×4 (06:36→21:07)
[2021-07-01] MEDS ORDERED: MIDAZOLAM 100MG/100ML PMX 100 ML IV PRN (07:00)
[2021-07-01] MEDS: MIDAZOLAM HCL 100 MG in SODIUM CHLORIDE 0.9% 100 ML IV PRN ×2 (08:01→19:29)
[2021-07-01] MEDS: PANTOPRAZOLE SODIUM 40 MG/VIAL IV SCH (08:02)
[2021-07-01] MEDS: FUROSEMIDE 40MG/4ML VIAL IVP SCH (08:02)
[2021-07-01] MEDS: ZINC SULFATE 220 MG ( 50 ) CAPSULE PO SCH (08:02)
[2021-07-01] MEDS: DEXAMETHASONE 10 MG/ML VIAL IV SCH (08:02)
[2021-07-01 08:57] LABS: BG BASE EXCESS -1.6 mmol/L (-2.0-2.0); BG CARBOXYHEMOGLOBIN 0.9 % (0.5-1.5); BG DEOXYHEMOGLOBIN 10.4 % (0.0-5.0); BG FRACTION INSPIRED OXYGEN 100; BG HCO3 ACT 24.1 mmol/L (22.0-26.0); BG METHEMOGLOBIN 0.4 % (0.0-1.5); BG OXYGEN SATURATION 89.5 % (92.0-98.5); BG OXYHEMOGLOBIN 88.3 % (94.0-97.0); BG PCO2 45.1 mmHg (35.0-45.0); BG PH 7.346 (7.350-7.450); BG PO2 62.3 mmHg (75.0-100.0); BG SAMPLE SITE RIGHT RADIAL; BG TOTAL HEMOGLOBIN 8.8 g/dL (12.0-18.0); BG VENT MODE VENT - PRVC
[2021-07-01] MEDS: METHYLPREDNISOLONE SOD SUCC 40 MG/ML VIAL IV SCH ×2 (11:55→17:50)
[2021-07-01] MEDS: ACETYLCYSTEINE 100MG/ML 10% VIAL 4ML INH SCH (15:02)
[2021-07-02] VITALS (90 sets, daily range): BP systolic 110–163; BP diastolic 58–107
[2021-07-02] MEDS: ACETYLCYSTEINE 100MG/ML 10% VIAL 4ML INH SCH ×3 (00:11→16:20)
[2021-07-02] MEDS: IPRATROPIUM/ALBUTEROL 0.5-3(2.5)MG/3ML NEB HHN SCH ×6 (00:11→20:55)
[2021-07-02] MEDS: METOCLOPRAMIDE HCL 10MG/2ML VIAL IV SCH ×5 (00:29→23:15)
[2021-07-02] MEDS: BLOOD SUGAR DIAGNOSTIC STRIP TEST SCH ×5 (00:30→23:16)
[2021-07-02] MEDS: PROPOFOL 10MG/ML 100ML 100 ML IV PRN ×2 (01:37→05:07)
[2021-07-02] MEDS: METHYLPREDNISOLONE SOD SUCC 40 MG/ML VIAL IV SCH ×3 (01:37→18:24)
[2021-07-02] MEDS: MIDAZOLAM HCL 100 MG in SODIUM CHLORIDE 0.9% 100 ML IV PRN ×3 (05:11→23:34)
[2021-07-02 05:43] LABS: HEMATOCRIT. 24.5 % (36.0-48.0); MEAN CORPUSCULAR HEMOGLOBIN 30.3 pg (28.0-32.0); MEAN CORPUSCULAR VOLUME 92.6 fL (81.0-99.0); MEAN PLATELET VOLUME 10.5 fl (7.4-10.4); RED BLOOD CELL COUNT 2.65 mill/uL (4.2-5.4); RED CELL DISTRIBUTION WIDTH 15.2 % (11.6-14.6)
[2021-07-02] MEDS: INSULIN LISPRO 100 UNITS/ML SUBCUT SCH ×5 (06:00→23:16)
[2021-07-02 07:45] LABS: BG BASE EXCESS -1.4 mmol/L (-2.0-2.0); BG CARBOXYHEMOGLOBIN 0.6 % (0.5-1.5); BG HCO3 ACT 23.6 mmol/L (22.0-26.0); BG METHEMOGLOBIN 0.4 % (0.0-1.5); BG OXYGEN SATURATION 93.9 % (92.0-98.5); BG PCO2 40.5 mmHg (35.0-45.0); BG PH 7.383 (7.350-7.450); BG PO2 72.4 mmHg (75.0-100.0); BG SAMPLE SITE RIGHT RADIAL; BG TOTAL HEMOGLOBIN 8.7 g/dL (12.0-18.0); BG VENT MODE VENT- PRVC
[2021-07-02] MEDS: CEFEPIME 2,000 MG in DEXT 5% WATER 100 ML IV SCH ×2 (09:04→21:01)
[2021-07-02] MEDS: ZINC SULFATE 220 MG ( 50 ) CAPSULE PO SCH (09:04)
[2021-07-02] MEDS: PANTOPRAZOLE SODIUM 40 MG/VIAL IV SCH (09:04)
[2021-07-02] MEDS: FUROSEMIDE 40MG/4ML VIAL IVP SCH (09:04)
[2021-07-02 12:52] LABS: PLATELET ESTIMATE DECREASED
[2021-07-02 12:54] LABS: PLATELET 116 x1000/uL (130-400)
[2021-07-02] MEDS: FENTANYL CITRATE/PF 2,500 MCG in SODIUM CHLORIDE 0.9% 200 ML IV PRN (16:42)
[2021-07-02] MEDS: LACTULOSE 20G/30ML UDC PO SCH (21:01)
[2021-07-03] VITALS (92 sets, daily range): BP systolic 121–209; BP diastolic 56–94
[2021-07-03] MEDS: IPRATROPIUM/ALBUTEROL 0.5-3(2.5)MG/3ML NEB HHN SCH ×6 (00:32→20:54)
[2021-07-03] MEDS: ACETYLCYSTEINE 100MG/ML 10% VIAL 4ML INH SCH ×3 (00:32→16:19)
[2021-07-03] MEDS: FENTANYL CITRATE/PF 2,500 MCG in SODIUM CHLORIDE 0.9% 200 ML IV PRN ×3 (01:52→17:08)
[2021-07-03] MEDS: METHYLPREDNISOLONE SOD SUCC 40 MG/ML VIAL IV SCH ×3 (02:23→17:12)
[2021-07-03 05:42] LABS: HEMOGLOBIN. 8.4 g/dL (12.0-16.0); MEAN CORPUSCULAR HEMOGLOBIN 29.8 pg (28.0-32.0); MEAN CORPUSCULAR VOLUME 91.8 fL (81.0-99.0); MEAN PLATELET VOLUME 10.9 fl (7.4-10.4); RED BLOOD CELL COUNT 2.83 mill/uL (4.2-5.4); RED CELL DISTRIBUTION WIDTH 15.1 % (11.6-14.6)
[2021-07-03] MEDS: BLOOD SUGAR DIAGNOSTIC STRIP TEST SCH ×3 (05:58→17:13)
[2021-07-03] MEDS: METOCLOPRAMIDE HCL 10MG/2ML VIAL IV SCH ×3 (06:25→17:12)
[2021-07-03] MEDS: INSULIN LISPRO 100 UNITS/ML SUBCUT SCH ×3 (06:25→18:00)
[2021-07-03] MEDS: MIDAZOLAM HCL 100 MG in SODIUM CHLORIDE 0.9% 100 ML IV PRN ×3 (07:58→22:56)
[2021-07-03] MEDS: CEFEPIME 2,000 MG in DEXT 5% WATER 100 ML IV SCH ×2 (08:32→21:33)
[2021-07-03] MEDS: FUROSEMIDE 40MG/4ML VIAL IVP SCH ×2 (08:32→17:12)
[2021-07-03] MEDS: ZINC SULFATE 220 MG ( 50 ) CAPSULE PO SCH (08:33)
[2021-07-03] MEDS: PANTOPRAZOLE SODIUM 40 MG/VIAL IV SCH (08:33)
[2021-07-03 09:54] LABS: BG BASE EXCESS 0.7 mmol/L (-2.0-2.0); BG CARBOXYHEMOGLOBIN 0.4 % (0.5-1.5); BG DEOXYHEMOGLOBIN 5.5 % (0.0-5.0); BG FRACTION INSPIRED OXYGEN 100; BG HCO3 ACT 26.1 mmol/L (22.0-26.0); BG METHEMOGLOBIN 0.3 % (0.0-1.5); BG OXYGEN SATURATION 94.5 % (92.0-98.5); BG OXYHEMOGLOBIN 93.8 % (94.0-97.0); BG PCO2 45.8 mmHg (35.0-45.0); BG PH 7.374 (7.350-7.450); BG SAMPLE SITE RIGHT RADIAL; BG TOTAL HEMOGLOBIN 9.4 g/dL (12.0-18.0); BG VENT MODE VENT - PRVC
[2021-07-03 10:28] LABS: ATYPICAL LYMPHOCYTES 1
[2021-07-03 10:29] LABS: PLATELET ESTIMATE DECREASED
[2021-07-03 10:33] LABS: PLATELET 119 x1000/uL (130-400)
[2021-07-03] MEDS: LACTULOSE 20G/30ML UDC PO SCH (21:33)
[2021-07-04] VITALS (89 sets, daily range): BP systolic 68–207; BP diastolic 22–83
[2021-07-04] MEDS: BLOOD SUGAR DIAGNOSTIC STRIP TEST SCH ×4 (00:15→18:11)
[2021-07-04] MEDS: METOCLOPRAMIDE HCL 10MG/2ML VIAL IV SCH ×4 (00:17→17:53)
[2021-07-04] MEDS: IPRATROPIUM/ALBUTEROL 0.5-3(2.5)MG/3ML NEB HHN SCH ×6 (01:15→20:46)
[2021-07-04] MEDS: ACETYLCYSTEINE 100MG/ML 10% VIAL 4ML INH SCH ×3 (01:16→16:42)
[2021-07-04] MEDS: METHYLPREDNISOLONE SOD SUCC 40 MG/ML VIAL IV SCH ×3 (01:28→17:50)
[2021-07-04] MEDS: FENTANYL CITRATE/PF 2,500 MCG in SODIUM CHLORIDE 0.9% 200 ML IV PRN ×3 (01:28→21:03)
[2021-07-04 05:36] LABS: BASOPHILS % 0.6 % (0.0-2.0); EOSINOPHILS % 1.8 % (0.0-5.0); HEMATOCRIT. 25.6 % (36.0-48.0); HEMOGLOBIN. 8.3 g/dL (12.0-16.0); LYMPHOCYTES % 7.4 % (20.0-50.0); MEAN CORPUSCULAR HEMOGLOBIN 30.1 pg (28.0-32.0); MEAN CORPUSCULAR VOLUME 93.3 fL (81.0-99.0); MEAN PLATELET VOLUME 8.9 fl (7.4-10.4); MONOCYTES % 2.2 % (2.0-8.0); PLATELET 113 x1000/uL (130-400); RED BLOOD CELL COUNT 2.75 mill/uL (4.2-5.4); RED CELL DISTRIBUTION WIDTH 15.2 % (11.6-14.6)
[2021-07-04] MEDS: INSULIN LISPRO 100 UNITS/ML SUBCUT SCH ×4 (05:52→18:00)
[2021-07-04] MEDS: MIDAZOLAM HCL 100 MG in SODIUM CHLORIDE 0.9% 100 ML IV PRN ×2 (06:04→13:01)
[2021-07-04] MEDS: PROPOFOL 10MG/ML 100ML 100 ML IV PRN (06:47)
[2021-07-04 08:56] LABS: BG BASE EXCESS 1.9 mmol/L (-2.0-2.0); BG CARBOXYHEMOGLOBIN 0.8 % (0.5-1.5); BG DEOXYHEMOGLOBIN 20.8 % (0.0-5.0); BG FRACTION INSPIRED OXYGEN 100; BG HCO3 ACT 26.9 mmol/L (22.0-26.0); BG METHEMOGLOBIN 0.2 % (0.0-1.5); BG OXYHEMOGLOBIN 78.2 % (94.0-97.0); BG PCO2 44.4 mmHg (35.0-45.0); BG PH 7.401 (7.350-7.450); BG PO2 44.7 mmHg (75.0-100.0); BG SAMPLE SITE RIGHT RADIAL; BG TOTAL HEMOGLOBIN 8.9 g/dL (12.0-18.0); BG VENT MODE PRVC
[2021-07-04] MEDS: FUROSEMIDE 40MG/4ML VIAL IVP SCH ×2 (09:00→17:50)
[2021-07-04] MEDS: ZINC SULFATE 220 MG ( 50 ) CAPSULE PO SCH (09:27)
[2021-07-04] MEDS: PANTOPRAZOLE SODIUM 40 MG/VIAL IV SCH (09:27)
[2021-07-04] MEDS ORDERED: POTASSIUM CHLORIDE 20MEQ/PACKET PO NR (09:30)
[2021-07-04] MEDS ORDERED: POTASSIUM CHLORIDE INJ 40 MEQ in DEXT 5% WATER 250 ML IV ONE (09:30)
[2021-07-04] MEDS: CEFEPIME 2,000 MG in DEXT 5% WATER 100 ML IV SCH (09:40)
[2021-07-04] MEDS ORDERED: KCL 20MEQ/100ML PREMIX 100 ML IV NR (10:00)
[2021-07-04] MEDS: NOREPINEPHRINE 32 MG in DEXT 5% WATER 218 ML IV PRN (10:18)
[2021-07-04] MEDS: ACETAMINOPHEN 650MG/20.3ML UDC PO PRN (13:01)
[2021-07-04] MEDS ORDERED: MIDAZOLAM HCL 2 MG/2 ML VIAL ONE (14:26)
[2021-07-04] MEDS: MEROPENEM 1,000 MG in SODIUM CHLORIDE 0.9% 100 ML IV SCH (16:00)
[2021-07-04] MEDS ORDERED: VANCOMYCIN 1 G PREMIX 200 ML IV NR (16:30)
[2021-07-04] MEDS: LACTULOSE 20G/30ML UDC PO SCH (21:03)
[2021-07-05] VITALS (107 sets, daily range): BP systolic 57–177; BP diastolic 29–100
[2021-07-05] MEDS: IPRATROPIUM/ALBUTEROL 0.5-3(2.5)MG/3ML NEB HHN SCH ×2 (00:13→04:13)
[2021-07-05] MEDS: ACETYLCYSTEINE 100MG/ML 10% VIAL 4ML INH SCH ×2 (00:14→16:15)
[2021-07-05] MEDS: METOCLOPRAMIDE HCL 10MG/2ML VIAL IV SCH ×4 (00:36→17:23)
[2021-07-05] MEDS: MEROPENEM 1,000 MG in SODIUM CHLORIDE 0.9% 100 ML IV SCH ×3 (00:36→17:56)
[2021-07-05] MEDS: BLOOD SUGAR DIAGNOSTIC STRIP TEST SCH ×4 (00:37→18:15)
[2021-07-05] MEDS: MIDAZOLAM HCL 100 MG in SODIUM CHLORIDE 0.9% 100 ML IV PRN ×3 (02:09→17:03)
[2021-07-05] MEDS: METHYLPREDNISOLONE SOD SUCC 40 MG/ML VIAL IV SCH ×3 (02:09→17:23)
[2021-07-05] MEDS: PROPOFOL 10MG/ML 100ML 100 ML IV PRN ×6 (04:42→22:53)
[2021-07-05] MEDS: INSULIN LISPRO 100 UNITS/ML SUBCUT SCH ×4 (05:54→18:00)
[2021-07-05] MEDS: ACETAMINOPHEN 650MG/20.3ML UDC PO PRN ×2 (05:55→11:11)
[2021-07-05] MEDS: PANTOPRAZOLE SODIUM 40 MG/VIAL IV SCH (08:18)
[2021-07-05] MEDS: ERGOCALCIFEROL 50000UNITS CAPSULE PO SCH (08:18)
[2021-07-05] MEDS: ZINC SULFATE 220 MG ( 50 ) CAPSULE PO SCH (08:18)
[2021-07-05 08:48] LABS: HEMATOCRIT. 25.5 % (36.0-48.0); HEMOGLOBIN. 8.2 g/dL (12.0-16.0); MEAN CORPUSCULAR HEMOGLOBIN 30.5 pg (28.0-32.0); MEAN CORPUSCULAR VOLUME 95.4 fL (81.0-99.0); MEAN PLATELET VOLUME 10.2 fl (7.4-10.4); PLATELET 141 x1000/uL (130-400); RED BLOOD CELL COUNT 2.68 mill/uL (4.2-5.4); RED CELL DISTRIBUTION WIDTH 16.2 % (11.6-14.6)
[2021-07-05 09:19] LABS: BG BASE EXCESS -1.9 mmol/L (-2.0-2.0); BG CARBOXYHEMOGLOBIN 1.2 % (0.5-1.5); BG DEOXYHEMOGLOBIN 19.7 % (0.0-5.0); BG FRACTION INSPIRED OXYGEN 100; BG HCO3 ACT 23.5 mmol/L (22.0-26.0); BG METHEMOGLOBIN 0.6 % (0.0-1.5); BG OXYGEN SATURATION 79.9 % (92.0-98.5); BG OXYHEMOGLOBIN 78.5 % (94.0-97.0); BG PCO2 42.6 mmHg (35.0-45.0); BG PH 7.359 (7.350-7.450); BG PO2 46.3 mmHg (75.0-100.0); BG SAMPLE SITE RIGHT RADIAL; BG TOTAL HEMOGLOBIN 8.3 g/dL (12.0-18.0); BG VENT MODE VENT - PRVC
[2021-07-05] MEDS: FENTANYL CITRATE/PF 2,500 MCG in SODIUM CHLORIDE 0.9% 200 ML IV PRN ×2 (09:49→18:45)
[2021-07-05] MEDS: PHENYLEPHRINE 100 MG in DEXT 5% WATER 240 ML IV PRN (09:49)
[2021-07-05] MEDS: FUROSEMIDE 40MG/4ML VIAL IVP SCH (09:50)
[2021-07-05] MEDS ORDERED: VECURONIUM BROMIDE 10 MG/VIAL IV SCH (10:00)
[2021-07-05 10:21] LABS: NUCLEATED RED BLOOD CELLS 1 /100 WBC; PLATELET ESTIMATE NORMAL
[2021-07-05] MEDS ORDERED: SODIUM CHLORIDE 0.9% 500 ML IV SCH (11:30)
[2021-07-05] MEDS ORDERED: VANCOMYCIN 750 MG PREMIX 150 ML IV SCH (15:00)
[2021-07-05] MEDS ORDERED: VANCOMYCIN 500 MG PREMIX 100 ML IV SCH (16:00)
[2021-07-05] MEDS: IPRATROPIUM BROMIDE (0.02%) 0.5MG/2.5ML NEB HHN SCH ×2 (16:15→20:09)
[2021-07-05] MEDS: LACTULOSE 20G/30ML UDC PO SCH (21:15)
[2021-07-06] VITALS (92 sets, daily range): BP systolic 87–142; BP diastolic 50–86
[2021-07-06] MEDS: ACETYLCYSTEINE 100MG/ML 10% VIAL 4ML INH SCH ×3 (00:21→12:44)
[2021-07-06] MEDS: IPRATROPIUM BROMIDE (0.02%) 0.5MG/2.5ML NEB HHN SCH ×4 (00:21→20:40)
[2021-07-06] MEDS: BLOOD SUGAR DIAGNOSTIC STRIP TEST SCH ×5 (00:40→23:37)
[2021-07-06] MEDS: MEROPENEM 1,000 MG in SODIUM CHLORIDE 0.9% 100 ML IV SCH ×4 (00:40→23:43)
[2021-07-06] MEDS: METOCLOPRAMIDE HCL 10MG/2ML VIAL IV SCH ×4 (00:40→23:43)
[2021-07-06] MEDS: MIDAZOLAM HCL 100 MG in SODIUM CHLORIDE 0.9% 100 ML IV PRN ×4 (00:42→22:54)
[2021-07-06] MEDS: FENTANYL CITRATE/PF 2,500 MCG in SODIUM CHLORIDE 0.9% 200 ML IV PRN ×3 (02:11→18:44)
[2021-07-06] MEDS: METHYLPREDNISOLONE SOD SUCC 40 MG/ML VIAL IV SCH ×3 (02:14→17:20)
[2021-07-06] MEDS: PROPOFOL 10MG/ML 100ML 100 ML IV PRN ×6 (02:15→20:33)
[2021-07-06] MEDS: INSULIN LISPRO 100 UNITS/ML SUBCUT SCH ×5 (05:31→23:45)
[2021-07-06 05:56] LABS: EOSINOPHILS % 0.1 % (0.0-5.0); HEMATOCRIT. 28.1 % (36.0-48.0); HEMOGLOBIN. 8.9 g/dL (12.0-16.0); LYMPHOCYTES % 11.2 % (20.0-50.0); MEAN CORPUSCULAR HEMOGLOBIN 29.9 pg (28.0-32.0); MEAN CORPUSCULAR VOLUME 94.1 fL (81.0-99.0); MEAN PLATELET VOLUME 11.7 fl (7.4-10.4); MONOCYTES % 2.5 % (2.0-8.0); NEUTROPHILS % 85.2 % (40.0-76.0); PLATELET 100 x1000/uL (130-400); RED BLOOD CELL COUNT 2.99 mill/uL (4.2-5.4); RED CELL DISTRIBUTION WIDTH 15.8 % (11.6-14.6)
[2021-07-06 08:29] LABS: BG BASE EXCESS -6.1 mmol/L (-2.0-2.0); BG CARBOXYHEMOGLOBIN 0.1 % (0.5-1.5); BG DEOXYHEMOGLOBIN 4.5 % (0.0-5.0); BG HCO3 ACT 19.7 mmol/L (22.0-26.0); BG METHEMOGLOBIN 0.3 % (0.0-1.5); BG OXYGEN SATURATION 95.5 % (92.0-98.5); BG OXYHEMOGLOBIN 95.1 % (94.0-97.0); BG PCO2 40.2 mmHg (35.0-45.0); BG PH 7.308 (7.350-7.450); BG SAMPLE SITE RIGHT RADIAL; BG TOTAL HEMOGLOBIN 9.2 g/dL (12.0-18.0); BG VENT MODE VENT- PRVC
[2021-07-06] MEDS ORDERED: FUROSEMIDE 40MG/4ML VIAL IVP SCH (09:00)
[2021-07-06] MEDS ORDERED: SODIUM POLYSTYRENE SULFONATE 15 G/60 ML BOT PO NR (12:30)
[2021-07-06] MEDS ORDERED: DEXT 5%/0.45% NACL 1000ML 1,000 ML IV ONE (15:15)
[2021-07-06] MEDS: ACETAMINOPHEN 650MG/20.3ML UDC PO PRN (15:26)
[2021-07-06] MEDS ORDERED: VANCOMYCIN 500 MG PREMIX 100 ML IV SCH (16:00)
[2021-07-06] MEDS ORDERED: COLISTIMETHATE SODIUM 150MG/VIAL INH SCH (18:00)
[2021-07-06] MEDS: LACTULOSE 20G/30ML UDC PO SCH (21:39)
[2021-07-07] VITALS (90 sets, daily range): BP systolic 89–123; BP diastolic 23–74
[2021-07-07] MEDS: PROPOFOL 10MG/ML 100ML 100 ML IV PRN ×5 (00:44→20:11)
[2021-07-07] MEDS: IPRATROPIUM BROMIDE (0.02%) 0.5MG/2.5ML NEB HHN SCH ×4 (00:55→20:23)
[2021-07-07] MEDS ORDERED: DEXT 5%/0.9% NACL 1,000 ML IV SCH (01:00)
[2021-07-07] MEDS: FENTANYL CITRATE/PF 2,500 MCG in SODIUM CHLORIDE 0.9% 200 ML IV PRN ×3 (01:32→21:13)
[2021-07-07] MEDS: METHYLPREDNISOLONE SOD SUCC 40 MG/ML VIAL IV SCH ×3 (01:49→17:31)
[2021-07-07] MEDS: BLOOD SUGAR DIAGNOSTIC STRIP TEST SCH ×3 (05:21→17:31)
[2021-07-07] MEDS: INSULIN LISPRO 100 UNITS/ML SUBCUT SCH ×4 (05:26→17:53)
[2021-07-07] MEDS: MIDAZOLAM HCL 100 MG in SODIUM CHLORIDE 0.9% 100 ML IV PRN ×2 (06:15→14:00)
[2021-07-07 09:22] LABS: BG BASE EXCESS -7.2 mmol/L (-2.0-2.0); BG CARBOXYHEMOGLOBIN 0.4 % (0.5-1.5); BG DEOXYHEMOGLOBIN 4.5 % (0.0-5.0); BG FRACTION INSPIRED OXYGEN 100; BG METHEMOGLOBIN 0.3 % (0.0-1.5); BG OXYGEN SATURATION 95.5 % (92.0-98.5); BG OXYHEMOGLOBIN 94.8 % (94.0-97.0); BG PCO2 41.2 mmHg (35.0-45.0); BG PH 7.282 (7.350-7.450); BG PO2 90.5 mmHg (75.0-100.0); BG SAMPLE SITE LEFT RADIAL; BG TOTAL HEMOGLOBIN 8.3 g/dL (12.0-18.0); BG TOTAL RESPIRATORY RATE 35 b/min; BG VENT MODE VENT- PRVC
[2021-07-07] MEDS: MEROPENEM 1,000 MG in SODIUM CHLORIDE 0.9% 100 ML IV SCH ×2 (09:23→17:11)
[2021-07-07] MEDS ORDERED: SODIUM POLYSTYRENE SULFONATE 15 G/60 ML BOT PO NR (09:30)
[2021-07-07] MEDS ORDERED: DEXTROSE 50% WATER 50ML SYRINGE IV PRN (13:15)
[2021-07-07] MEDS: COLISTIMETHATE SODIUM 150MG/VIAL INH SCH (15:44)
[2021-07-07] MEDS: FUROSEMIDE 40MG/4ML VIAL IVP SCH (17:31)
[2021-07-07] MEDS: LACTULOSE 20G/30ML UDC PO SCH (21:18)
[2021-07-07 22:52] LABS: CLARITY URINE CLOUDY (CLEAR); COLOR URINE RED (YELLOW); KETONES URINE TRACE (NEGATIVE); LEUKOCYTE ESTERASE URINE 1+ (NEGATIVE); NITRITE URINE NEGATIVE (NEGATIVE); OCCULT BLOOD URINE 3+ (NEGATIVE); PROTEIN URINE 3+ (NEGATIVE); SPECIFIC GRAVITY URINE 1.022 (1.005-1.030)
[2021-07-08] VITALS (101 sets, daily range): BP systolic 83–213; BP diastolic 47–100
[2021-07-08] MEDS: BLOOD SUGAR DIAGNOSTIC STRIP TEST SCH ×4 (00:19→17:00)
[2021-07-08] MEDS: INSULIN LISPRO 100 UNITS/ML SUBCUT SCH ×4 (00:22→17:57)
[2021-07-08] MEDS: MEROPENEM 1,000 MG in SODIUM CHLORIDE 0.9% 100 ML IV SCH ×4 (00:22→23:58)
[2021-07-08] MEDS: IPRATROPIUM BROMIDE (0.02%) 0.5MG/2.5ML NEB HHN SCH ×4 (01:30→20:07)
[2021-07-08] MEDS: PROPOFOL 10MG/ML 100ML 100 ML IV PRN ×4 (02:06→18:23)
[2021-07-08] MEDS: METHYLPREDNISOLONE SOD SUCC 40 MG/ML VIAL IV SCH ×3 (02:25→17:00)
[2021-07-08] MEDS: MIDAZOLAM HCL 100 MG in SODIUM CHLORIDE 0.9% 100 ML IV PRN ×2 (03:51→14:15)
[2021-07-08 06:24] LABS: PHOSPHORUS 7.7 mg/dL (2.5-4.9)
[2021-07-08 06:49] LABS: HEPATITIS B SURFACE ANTIGEN NEGATIVE
[2021-07-08] MEDS: COLISTIMETHATE SODIUM 150MG/VIAL INH SCH ×2 (07:42→20:07)
[2021-07-08] MEDS: FENTANYL CITRATE/PF 2,500 MCG in SODIUM CHLORIDE 0.9% 200 ML IV PRN ×2 (07:44→16:39)
[2021-07-08] MEDS: BISACODYL 10MG SUPP PR PRN (07:44)
[2021-07-08] MEDS: FUROSEMIDE 40MG/4ML VIAL IVP SCH ×2 (08:00→17:00)
[2021-07-08] MEDS ORDERED: LIDOCAINE HCL 1% 20ML VIAL (Pyxis) INJ ONE (09:26)
[2021-07-08] MEDS ORDERED: HEPARIN 1000 UNITS/ML 10ML ONE (09:27)
[2021-07-08 09:58] LABS: BG BASE EXCESS -9.9 mmol/L (-2.0-2.0); BG DEOXYHEMOGLOBIN 6.7 % (0.0-5.0); BG FRACTION INSPIRED OXYGEN 100; BG METHEMOGLOBIN 0.3 % (0.0-1.5); BG OXYGEN SATURATION 93.2 % (92.0-98.5); BG PCO2 41.5 mmHg (35.0-45.0); BG PH 7.229 (7.350-7.450); BG PO2 79.8 mmHg (75.0-100.0); BG SAMPLE SITE RIGHT RADIAL; BG TOTAL HEMOGLOBIN 8.5 g/dL (12.0-18.0); BG VENT MODE VENT - PRVC
[2021-07-08] MEDS ORDERED: SODIUM BICARBONATE 8.4% 1 MEQ/ML 50ML SYR IV NR (10:45)
[2021-07-08] MEDS: CALCIUM ACETATE 667MG CAPSULE NG SCH ×2 (15:41→17:00)
[2021-07-08] MEDS ORDERED: DOPAMINE 400MG/250ML PREMIX 250 ML IV SCH (16:15)
[2021-07-08] MEDS ORDERED: VANCOMYCIN 500 MG PREMIX 100 ML IV NR (20:00)
[2021-07-08] MEDS: LACTULOSE 20G/30ML UDC PO SCH (21:34)
[2021-07-09] VITALS (101 sets, daily range): BP systolic 84–179; BP diastolic 45–77
[2021-07-09] MEDS: PROPOFOL 10MG/ML 100ML 100 ML IV PRN ×4 (00:02→22:06)
[2021-07-09] MEDS: FENTANYL CITRATE/PF 2,500 MCG in SODIUM CHLORIDE 0.9% 200 ML IV PRN ×3 (00:03→15:36)
[2021-07-09] MEDS: BLOOD SUGAR DIAGNOSTIC STRIP TEST SCH ×4 (00:04→17:23)
[2021-07-09] MEDS: MIDAZOLAM HCL 100 MG in SODIUM CHLORIDE 0.9% 100 ML IV PRN ×3 (00:04→18:30)
[2021-07-09] MEDS: IPRATROPIUM BROMIDE (0.02%) 0.5MG/2.5ML NEB HHN SCH ×4 (00:37→20:04)
[2021-07-09] MEDS: METHYLPREDNISOLONE SOD SUCC 40 MG/ML VIAL IV SCH ×3 (03:08→18:16)
[2021-07-09] MEDS: INSULIN LISPRO 100 UNITS/ML SUBCUT SCH ×4 (05:43→17:23)
[2021-07-09 06:05] LABS: HEMATOCRIT. 23.4 % (36.0-48.0); HEMOGLOBIN. 7.8 g/dL (12.0-16.0); MEAN CORPUSCULAR HEMOGLOBIN 30.9 pg (28.0-32.0); MEAN CORPUSCULAR VOLUME 92.2 fL (81.0-99.0); PLATELET 102 x1000/uL (130-400); RED BLOOD CELL COUNT 2.53 mill/uL (4.2-5.4); RED CELL DISTRIBUTION WIDTH 15.4 % (11.6-14.6)
[2021-07-09] MEDS: CALCIUM ACETATE 667MG CAPSULE NG SCH ×2 (08:02→12:39)
[2021-07-09] MEDS: FUROSEMIDE 40MG/4ML VIAL IVP SCH ×2 (08:02→16:09)
[2021-07-09] MEDS: MEROPENEM 1,000 MG in SODIUM CHLORIDE 0.9% 100 ML IV SCH ×2 (08:03→16:09)
[2021-07-09 08:50] LABS: BG BASE EXCESS -6.4 mmol/L (-2.0-2.0); BG CARBOXYHEMOGLOBIN 0.8 % (0.5-1.5); BG DEOXYHEMOGLOBIN 11.6 % (0.0-5.0); BG HCO3 ACT 19.8 mmol/L (22.0-26.0); BG METHEMOGLOBIN 0.3 % (0.0-1.5); BG OXYGEN SATURATION 88.3 % (92.0-98.5); BG OXYHEMOGLOBIN 87.3 % (94.0-97.0); BG PCO2 42.4 mmHg (35.0-45.0); BG PH 7.287 (7.350-7.450); BG PO2 61.8 mmHg (75.0-100.0); BG SAMPLE SITE RIGHT RADIAL; BG TOTAL HEMOGLOBIN 7.9 g/dL (12.0-18.0); BG VENT MODE VENT- PRVC
[2021-07-09] MEDS: PHENYLEPHRINE 100 MG in DEXT 5% WATER 240 ML IV PRN (09:50)
[2021-07-09] MEDS: METOCLOPRAMIDE HCL 10MG/2ML VIAL IV SCH ×2 (12:39→18:16)
[2021-07-09] MEDS: COLISTIMETHATE SODIUM 150MG/VIAL INH SCH (14:05)
[2021-07-09] MEDS: CALCIUM ACETATE 667 MG/5 ML SOLUTION NG SCH (17:26)
[2021-07-09 21:06] LABS: NUCLEATED RED BLOOD CELLS 3 /100 WBC; PLATELET ESTIMATE DECREAS
[2021-07-09] MEDS: LACTULOSE 20G/30ML UDC PO SCH (21:32)
[2021-07-10] VITALS (109 sets, daily range): BP systolic 64–167; BP diastolic 33–83
[2021-07-10] MEDS: METOCLOPRAMIDE HCL 10MG/2ML VIAL IV SCH ×4 (00:37→17:50)
[2021-07-10] MEDS: BLOOD SUGAR DIAGNOSTIC STRIP TEST SCH ×4 (00:38→17:50)
[2021-07-10] MEDS: FENTANYL CITRATE/PF 2,500 MCG in SODIUM CHLORIDE 0.9% 200 ML IV PRN ×3 (01:10→16:59)
[2021-07-10] MEDS: MIDAZOLAM HCL 100 MG in SODIUM CHLORIDE 0.9% 100 ML IV PRN ×4 (01:51→22:57)
[2021-07-10] MEDS: IPRATROPIUM BROMIDE (0.02%) 0.5MG/2.5ML NEB HHN SCH ×4 (03:47→20:15)
[2021-07-10] MEDS: COLISTIMETHATE SODIUM 150MG/VIAL INH SCH ×3 (03:47→20:15)
[2021-07-10] MEDS: METHYLPREDNISOLONE SOD SUCC 40 MG/ML VIAL IV SCH ×3 (03:57→17:50)
[2021-07-10] MEDS: PROPOFOL 10MG/ML 100ML 100 ML IV PRN ×5 (03:58→22:59)
[2021-07-10] MEDS: INSULIN LISPRO 100 UNITS/ML SUBCUT SCH ×4 (06:00→17:50)
[2021-07-10] MEDS: MEROPENEM 1,000 MG in SODIUM CHLORIDE 0.9% 100 ML IV SCH ×2 (07:58→21:23)
[2021-07-10] MEDS: FUROSEMIDE 40MG/4ML VIAL IVP SCH (08:00)
[2021-07-10] MEDS: CALCIUM ACETATE 667 MG/5 ML SOLUTION NG SCH ×3 (08:00→17:50)
[2021-07-10] MEDS: ACETAMINOPHEN 650MG/20.3ML UDC PO PRN (08:33)
[2021-07-10 09:35] LABS: BG CARBOXYHEMOGLOBIN 1.8 % (0.5-1.5); BG DEOXYHEMOGLOBIN 15.3 % (0.0-5.0); BG FRACTION INSPIRED OXYGEN 100; BG HCO3 ACT 22.8 mmol/L (22.0-26.0); BG METHEMOGLOBIN 0.2 % (0.0-1.5); BG OXYGEN SATURATION 84.4 % (92.0-98.5); BG OXYHEMOGLOBIN 82.7 % (94.0-97.0); BG PCO2 44.3 mmHg (35.0-45.0); BG PO2 53.4 mmHg (75.0-100.0); BG SAMPLE SITE RIGHT RADIAL; BG TOTAL HEMOGLOBIN 8.9 g/dL (12.0-18.0); BG VENT MODE VENT - PRVC
[2021-07-10] MEDS: DEXT 5%/0.45% NACL 1000ML 1,000 ML IV SCH (09:47)
[2021-07-10 09:52] LABS: HEMATOCRIT. 24.8 % (36.0-48.0); MEAN CORPUSCULAR HEMOGLOBIN 29.8 pg (28.0-32.0); MEAN CORPUSCULAR VOLUME 91.9 fL (81.0-99.0); MEAN PLATELET VOLUME 11.5 fl (7.4-10.4); PLATELET 116 x1000/uL (130-400); RED CELL DISTRIBUTION WIDTH 15.7 % (11.6-14.6)
[2021-07-10 10:06] LABS: ANTI-NUCLEAR ANTIBODIES DIRECT Positive (Negative)
[2021-07-10] MEDS: MIDODRINE HCL 5MG TABLET PO SCH ×3 (10:27→17:50)
[2021-07-10 11:14] LABS: NUCLEATED RED BLOOD CELLS 2 /100 WBC
[2021-07-10 11:15] LABS: PLATELET ESTIMATE SLIGHTLY DECREASED
[2021-07-10] MEDS ORDERED: SULFAMETHOXAZOLE/TRIMETHOPRIM 400/80MG TAB PO SCH (13:00)
[2021-07-10] MEDS: [UNRECOGNIZED DRUG - OTHER] NG SCH ×2 (13:55→21:23)
[2021-07-10] MEDS: LACTULOSE 20G/30ML UDC PO SCH (21:23)
[2021-07-10] MEDS: PETROLATUM,WHITE OPHTH OINT 3.5GM BOTHEYE SCH (21:23)
[2021-07-11] VITALS (97 sets, daily range): BP systolic 80–197; BP diastolic 35–88
[2021-07-11] MEDS: FENTANYL CITRATE/PF 2,500 MCG in SODIUM CHLORIDE 0.9% 200 ML IV PRN ×4 (00:10→23:37)
[2021-07-11] MEDS: BLOOD SUGAR DIAGNOSTIC STRIP TEST SCH ×5 (00:11→23:11)
[2021-07-11] MEDS: METOCLOPRAMIDE HCL 10MG/2ML VIAL IV SCH ×5 (00:11→23:16)
[2021-07-11] MEDS: IPRATROPIUM BROMIDE (0.02%) 0.5MG/2.5ML NEB HHN SCH ×4 (04:50→21:25)
[2021-07-11] MEDS: INSULIN LISPRO 100 UNITS/ML SUBCUT SCH ×5 (06:00→23:16)
[2021-07-11 06:16] LABS: HEMATOCRIT. 26.9 % (36.0-48.0); HEMOGLOBIN. 8.7 g/dL (12.0-16.0); MEAN CORPUSCULAR HEMOGLOBIN 29.4 pg (28.0-32.0); MEAN CORPUSCULAR VOLUME 91.1 fL (81.0-99.0); MEAN PLATELET VOLUME 10.7 fl (7.4-10.4); PLATELET 101 x1000/uL (130-400); RED BLOOD CELL COUNT 2.95 mill/uL (4.2-5.4); RED CELL DISTRIBUTION WIDTH 15.8 % (11.6-14.6)
[2021-07-11] MEDS: PHENYLEPHRINE 100 MG in DEXT 5% WATER 240 ML IV PRN (06:49)
[2021-07-11] MEDS: MIDAZOLAM HCL 100 MG in SODIUM CHLORIDE 0.9% 100 ML IV PRN ×3 (06:50→20:03)
[2021-07-11] MEDS: PROPOFOL 10MG/ML 100ML 100 ML IV PRN ×5 (07:33→23:54)
[2021-07-11] MEDS: [UNRECOGNIZED DRUG - OTHER] NG SCH ×2 (08:38→20:03)
[2021-07-11] MEDS: CALCIUM ACETATE 667 MG/5 ML SOLUTION NG SCH ×3 (08:38→17:21)
[2021-07-11] MEDS: MIDODRINE HCL 5MG TABLET PO SCH ×3 (08:38→17:21)
[2021-07-11] MEDS: PETROLATUM,WHITE OPHTH OINT 3.5GM BOTHEYE SCH ×2 (08:39→20:02)
[2021-07-11] MEDS: COLISTIMETHATE SODIUM 150MG/VIAL INH SCH ×2 (09:30→21:00)
[2021-07-11 09:53] LABS: BG CARBOXYHEMOGLOBIN 0.8 % (0.5-1.5); BG DEOXYHEMOGLOBIN 8.2 % (0.0-5.0); BG FRACTION INSPIRED OXYGEN 100; BG HCO3 ACT 23.1 mmol/L (22.0-26.0); BG METHEMOGLOBIN 0.3 % (0.0-1.5); BG OXYGEN SATURATION 91.7 % (92.0-98.5); BG OXYHEMOGLOBIN 90.7 % (94.0-97.0); BG PCO2 46.5 mmHg (35.0-45.0); BG PH 7.314 (7.350-7.450); BG PO2 69.9 mmHg (75.0-100.0); BG SAMPLE SITE RIGHT RADIAL; BG TOTAL HEMOGLOBIN 9.2 g/dL (12.0-18.0); BG VENT MODE VENT - PRVC
[2021-07-11] MEDS: METHYLPREDNISOLONE SOD SUCC 40 MG/ML VIAL IV SCH (10:12)
[2021-07-11] MEDS: DEXT 5%/0.45% NACL 1000ML 1,000 ML IV SCH (10:13)
[2021-07-11 12:11] LABS: PHOSPHORUS 5.9 mg/dL (2.5-4.9)
[2021-07-11 13:34] LABS: PLATELET ESTIMATE DECREASED
[2021-07-11] MEDS: LACTULOSE 20G/30ML UDC PO SCH (20:02)
[2021-07-12] VITALS (98 sets, daily range): BP systolic 53–169; BP diastolic 22–82
[2021-07-12] MEDS: IPRATROPIUM BROMIDE (0.02%) 0.5MG/2.5ML NEB HHN SCH ×4 (00:58→20:52)
[2021-07-12] MEDS: MIDAZOLAM HCL 100 MG in SODIUM CHLORIDE 0.9% 100 ML IV PRN ×3 (03:30→18:17)
[2021-07-12] MEDS: BLOOD SUGAR DIAGNOSTIC STRIP TEST SCH ×4 (05:12→23:15)
[2021-07-12] MEDS: METOCLOPRAMIDE HCL 10MG/2ML VIAL IV SCH ×4 (05:12→23:19)
[2021-07-12] MEDS: PROPOFOL 10MG/ML 100ML 100 ML IV PRN ×5 (05:16→22:41)
[2021-07-12 05:25] LABS: HEMATOCRIT. 24.5 % (36.0-48.0); HEMOGLOBIN. 8.4 g/dL (12.0-16.0); MEAN CORPUSCULAR HEMOGLOBIN 30.6 pg (28.0-32.0); MEAN CORPUSCULAR VOLUME 89.1 fL (81.0-99.0); MEAN PLATELET VOLUME 11.5 fl (7.4-10.4); PLATELET 105 x1000/uL (130-400); RED BLOOD CELL COUNT 2.75 mill/uL (4.2-5.4); RED CELL DISTRIBUTION WIDTH 15.8 % (11.6-14.6)
[2021-07-12] MEDS: INSULIN LISPRO 100 UNITS/ML SUBCUT SCH ×4 (05:31→23:15)
[2021-07-12] MEDS: PHENYLEPHRINE 100 MG in DEXT 5% WATER 240 ML IV PRN (05:31)
[2021-07-12] MEDS: METHYLPREDNISOLONE SOD SUCC 40 MG/ML VIAL IV SCH (08:11)
[2021-07-12] MEDS: [UNRECOGNIZED DRUG - OTHER] NG SCH ×2 (08:11→21:03)
[2021-07-12] MEDS: MIDODRINE HCL 5MG TABLET PO SCH ×3 (08:11→21:03)
[2021-07-12] MEDS: CALCIUM ACETATE 667 MG/5 ML SOLUTION NG SCH ×3 (08:11→17:26)
[2021-07-12] MEDS: PETROLATUM,WHITE OPHTH OINT 3.5GM BOTHEYE SCH ×2 (08:11→21:02)
[2021-07-12] MEDS: FENTANYL CITRATE/PF 2,500 MCG in SODIUM CHLORIDE 0.9% 200 ML IV PRN ×3 (08:14→23:19)
[2021-07-12 08:53] LABS: BG BASE EXCESS -4.1 mmol/L (-2.0-2.0); BG CARBOXYHEMOGLOBIN 0.8 % (0.5-1.5); BG DEOXYHEMOGLOBIN 10.6 % (0.0-5.0); BG HCO3 ACT 22.3 mmol/L (22.0-26.0); BG METHEMOGLOBIN 0.3 % (0.0-1.5); BG OXYGEN SATURATION 89.3 % (92.0-98.5); BG OXYHEMOGLOBIN 88.3 % (94.0-97.0); BG PCO2 46.9 mmHg (35.0-45.0); BG PH 7.295 (7.350-7.450); BG PO2 64.1 mmHg (75.0-100.0); BG SAMPLE SITE RIGHT RADIAL; BG TOTAL HEMOGLOBIN 8.7 g/dL (12.0-18.0); BG VENT MODE VENT- PRVC
[2021-07-12] MEDS: DEXT 5%/0.45% NACL 1000ML 1,000 ML IV SCH (09:44)
[2021-07-12 09:46] LABS: NUCLEATED RED BLOOD CELLS 1 /100 WBC; PLATELET ESTIMATE SLIGHTLY DECREASED
[2021-07-12] MEDS ORDERED: COLISTIMETHATE SODIUM 150MG/VIAL INH SCH (11:00)
[2021-07-12] MEDS ORDERED: VECURONIUM BROMIDE 10 MG/VIAL IV NR (14:00)
[2021-07-12] MEDS: QUETIAPINE FUMARATE 25MG TABLET PO SCH (21:03)
[2021-07-12] MEDS: LACTULOSE 20G/30ML UDC PO SCH (21:03)
[2021-07-13] VITALS (64 sets, daily range): BP systolic 58–175; BP diastolic 14–115
[2021-07-13] MEDS: MIDAZOLAM HCL 100 MG in SODIUM CHLORIDE 0.9% 100 ML IV PRN ×2 (01:21→11:46)
[2021-07-13] MEDS: VECURONIUM BROMIDE 10 MG/VIAL IV PRN ×2 (01:41→07:54)
[2021-07-13] MEDS: PROPOFOL 10MG/ML 100ML 100 ML IV PRN ×2 (01:59→09:04)
[2021-07-13] MEDS: IPRATROPIUM BROMIDE (0.02%) 0.5MG/2.5ML NEB HHN SCH ×2 (02:07→08:42)
[2021-07-13] MEDS: PHENYLEPHRINE 100 MG in DEXT 5% WATER 240 ML IV PRN ×3 (02:57→15:09)
[2021-07-13] MEDS: ACETAMINOPHEN 650MG/20.3ML UDC PO PRN (03:27)
[2021-07-13] MEDS: BLOOD SUGAR DIAGNOSTIC STRIP TEST SCH ×2 (05:24→11:48)
[2021-07-13] MEDS: INSULIN LISPRO 100 UNITS/ML SUBCUT SCH ×2 (05:24→12:00)
[2021-07-13] MEDS: METOCLOPRAMIDE HCL 10MG/2ML VIAL IV SCH ×2 (05:25→11:47)
[2021-07-13] MEDS: NOREPINEPHRINE 32 MG in DEXT 5% WATER 218 ML IV PRN (05:48)
[2021-07-13 06:19] LABS: BG BASE EXCESS -9.5 mmol/L (-2.0-2.0); BG CARBOXYHEMOGLOBIN 1.3 % (0.5-1.5); BG DEOXYHEMOGLOBIN 22.6 % (0.0-5.0); BG FRACTION INSPIRED OXYGEN 1000; BG HCO3 ACT 18.7 mmol/L (22.0-26.0); BG METHEMOGLOBIN 0.1 % (0.0-1.5); BG OXYGEN SATURATION 77.1 % (92.0-98.5); BG PCO2 52.1 mmHg (35.0-45.0); BG PH 7.174 (7.350-7.450); BG PO2 50.3 mmHg (75.0-100.0); BG SAMPLE SITE RIGHT RADIAL; BG TOTAL HEMOGLOBIN 10.4 g/dL (12.0-18.0); BG VENT MODE VENT PRVC
[2021-07-13] MEDS: MIDODRINE HCL 5MG TABLET PO SCH ×2 (06:50→13:23)
[2021-07-13] MEDS: QUETIAPINE FUMARATE 25MG TABLET PO SCH (08:25)
[2021-07-13] MEDS: [UNRECOGNIZED DRUG - OTHER] NG SCH (08:25)
[2021-07-13] MEDS: CALCIUM ACETATE 667 MG/5 ML SOLUTION NG SCH ×2 (08:25→13:25)
[2021-07-13] MEDS: METHYLPREDNISOLONE SOD SUCC 40 MG/ML VIAL IV SCH (08:25)
[2021-07-13] MEDS: PETROLATUM,WHITE OPHTH OINT 3.5GM BOTHEYE SCH (08:26)
[2021-07-13] MEDS: DEXT 5%/0.45% NACL 1000ML 1,000 ML IV SCH (10:38)
[2021-07-13] MEDS ORDERED: DEXTROSE 10% WATER 1,000 ML IV SCH (11:15)
[2021-07-13] MEDS ORDERED: DEXT 10% WATER 1,000 ML IV SCH (11:19)
[2021-07-13 12:53] LABS: BG BASE EXCESS -19.8 mmol/L (-2.0-2.0); BG CARBOXYHEMOGLOBIN 1.1 % (0.5-1.5); BG DEOXYHEMOGLOBIN 36.6 % (0.0-5.0); BG FRACTION INSPIRED OXYGEN 100; BG METHEMOGLOBIN 0.3 % (0.0-1.5); BG OXYGEN SATURATION 62.9 % (92.0-98.5); BG PCO2 56.6 mmHg (35.0-45.0); BG PH 6.945 (7.350-7.450); BG PO2 45.4 mmHg (75.0-100.0); BG SAMPLE SITE LEFT RADIAL; BG TOTAL HEMOGLOBIN 10.8 g/dL (12.0-18.0); BG VENT MODE VENT - PRVC
[2021-07-13] MEDS ORDERED: SODIUM BICARBONATE 8.4% 1 MEQ/ML 50ML SYR IV ONE (13:00)
[2021-07-13] MEDS ORDERED: VASOPRESSIN 20 UNIT in SODIUM CHLORIDE 0.9% 99 ML IV PRN (13:00)
[2021-07-13] MEDS: CITRIC ACID/SODIUM CITRATE SOLN 30ML UDC NG SCH ×2 (13:23→13:25)
[2021-07-14] MEDS ORDERED: CALCIUM CHLORIDE 1GM/10ML SYR IV ONE (08:49)
[2021-07-14] MEDS ORDERED: DEXTROSE 50% WATER 50ML SYRINGE IV ONE (08:49)
[2021-07-14] MEDS ORDERED: EPINEPHRINE 0.1MG/ML (1:10,000) 10ML SYR ONE (08:49)
[2021-07-14] MEDS ORDERED: SODIUM BICARBONATE 8.4% 1 MEQ/ML 50ML SYR IV ONE (08:49)
== END 2021-07-13 15:57 | DRG 3 ==
LOC: ER 21:30 → ENRESERV 21:41 → EDBEDREQTM 23:35 → EDBEDREQ 23:35 → ER 06-07 00:59 → EDBD 06-07 02:08 → MICUSO 06-07 02:08 → MICUNO 06-21 21:40
PROVIDERS: ADMIT Internal Medicine; ATTEND Internal Medicine
PROC: 5A1955Z Respiratory Ventilation, Greater than 96 Consecutive Hours (ICD-10-PCS; principal; 2021-06-06)
PROC: 06HY33Z Insertion of Infusion Device into Lower Vein, Percutaneous Approach (ICD-10-PCS; 2021-06-06)
PROC: 5A2204Z Restoration of Cardiac Rhythm, Single (ICD-10-PCS; 2021-06-06)
PROC: 0BH17EZ Insertion of Endotracheal Airway into Trachea, Via Natural or Artificial Opening (ICD-10-PCS; 2021-06-06)
PROC: 02HV33Z Insertion of Infusion Device into Superior Vena Cava, Percutaneous Approach (ICD-10-PCS; 2021-06-07)
PROC: B548ZZA Ultrasonography of Superior Vena Cava, Guidance (ICD-10-PCS; 2021-06-07)
PROC: 0B110F4 Bypass Trachea to Cutaneous with Tracheostomy Device, Open Approach (ICD-10-PCS; 2021-07-04)
PROC: 0GBJ0ZZ Excision of Thyroid Gland Isthmus, Open Approach (ICD-10-PCS; 2021-07-04)
PROC: 5A1D80Z Performance of Urinary Filtration, Prolonged Intermittent, 6-18 hours Per Day (ICD-10-PCS; 2021-07-07)
PROC: 05HP33Z Insertion of Infusion Device into Right External Jugular Vein, Percutaneous Approach (ICD-10-PCS; 2021-07-08)
PROC: 5A1D70Z Performance of Urinary Filtration, Intermittent, Less than 6 Hours Per Day (ICD-10-PCS; 2021-07-09)
PROC: 5A1D70Z Performance of Urinary Filtration, Intermittent, Less than 6 Hours Per Day (ICD-10-PCS; 2021-07-10)
PROC: 5A1D70Z Performance of Urinary Filtration, Intermittent, Less than 6 Hours Per Day (ICD-10-PCS; 2021-07-12)
PROC: 5A12012 Performance of Cardiac Output, Single, Manual (ICD-10-PCS; 2021-07-13)
DX: A41.89 Other specified sepsis (principal); J12.82 Pneumonia due to coronavirus disease 2019; J80 Acute respiratory distress syndrome; I50.33 Acute on chronic diastolic (congestive) heart failure; U07.1 COVID-19; R65.21 Severe sepsis with septic shock; J15.6 Pneumonia due to other Gram-negative bacteria; G93.41 Metabolic encephalopathy; I21.4 Non-ST elevation (NSTEMI) myocardial infarction; E87.2 Acidosis; N17.9 Acute kidney failure, unspecified; M62.82 Rhabdomyolysis; E87.0 Hyperosmolality and hypernatremia; I13.0 Hypertensive heart and chronic kidney disease with heart failure and stage 1 through stage 4 chronic kidney disease, or unspecified chronic kidney disease; D69.6 Thrombocytopenia, unspecified; I49.9 Cardiac arrhythmia, unspecified; D72.810 Lymphocytopenia; Z96.649 Presence of unspecified artificial hip joint; R74.01 Elevation of levels of liver transaminase levels; S00.80XA Unspecified superficial injury of other part of head, initial encounter; X58.XXXA Exposure to other specified factors, initial encounter; E87.5 Hyperkalemia; E11.65 Type 2 diabetes mellitus with hyperglycemia; R31.29 Other microscopic hematuria; D64.9 Anemia, unspecified; I46.9 Cardiac arrest, cause unspecified; N18.2 Chronic kidney disease, stage 2 (mild); E11.22 Type 2 diabetes mellitus with diabetic chronic kidney disease; Y93.89 Activity, other specified; Y92.89 Other specified places as the place of occurrence of the external cause; Y99.8 Other external cause status; I25.2 Old myocardial infarction
CPT/HCPCS: 36415; 36600; 71045; 74018; 76700; 76770; 76937; 80048; 80053; 80202; 81003; 82040; 82375; 82550; 82570; 82728; 82805; 82962; 83036; 83520; 83605; 83615; 83735; 83880; 84100; 84134; 84145; 84156; 84443; 84478; 84484; 85025; 85027; 85379; 85384; 86038; 86060; 86140; 86160; 86256; 86705; 86709; 86803; 86850; 86900; 86920; 87070; 87077; 87186; 87340; 87426; 93005; 93306; 93970; 94002; 94003; 94640; 99291; A6261; C1725; C1752; C9113; J0456; J0692; J0696; J0770; J1100; J1265; J1644; J1650; J1815; J1940; J2185; J2250; J2370; J2405; J2543; J2704; J2765; J2920; J3010; J3370; J3480; J3490; J7030; J7040; J7042; J7050; J7060; J7608; U0003; U0005; A4315